=== PATIENT | female | born 1930 | race Caucasian/White ===

== ENCOUNTER 2016-10-31 02:21 | Inpatient (IN) | payer MEDICARE, BC ==
--- NOTE | 2016-10-31 02:25 | EDM.PDOC ---
ED HPI Trauma - General Chief Complaint: Lower Extremity Injury/Pain Stated Complaint: AMBULANCE Time Seen by Provider: 10/31/16 02:24 Source: Reports: Patient - History of Present Illness INITIAL COMMENTS - FREE TEXT/NARRATIVE: HISTORY AND PHYSICAL: History of present illness: [] Patient arrives via ambulance post fall in her home, is able to call the ambulance on her own she complains of left hip pain and she did hit her head quite hard no loss of consciousness No fever nausea vomiting chills sweats Review of systems: As per history of present illness and below otherwise all systems reviewed and negative. Past medical history: As per history of present illness and as reviewed below otherwise noncontributory. Surgical history: As per history of present illness and as reviewed below otherwise noncontributory. Social history: No reported history of drug or alcohol abuse. Family history: As per history of present illness and as reviewed below otherwise noncontributory. Physical exam: HEENT: Atraumatic, normocephalic, pupils reactive, negative for conjunctival pallor or scleral icterus, mucous membranes moist, throat clear, neck supple, nontender, trachea midline. Lungs: Clear to auscultation, breath sounds equal bilaterally, chest nontender. Heart: S1S2, regular, negative for clicks, rubs, or JVD. Abdomen: Soft, nondistended, nontender. Negative for masses or hepatosplenomegaly. Negative for costovertebral tenderness. Pelvis: Stable nontender. Genitourinary: Deferred. Rectal: Deferred. Extremities: Atraumatic, negative for cords or calf pain. Neurovascular unremarkable. Neuro: Awake, alert, oriented. Cranial nerves II through XII unremarkable. Cerebellum unremarkable. Motor and sensory unremarkable throughout. Exam nonfocal. Diagnostics: [] Head CT without Cervical spine with Pelvis with left hip Therapeutics: [] Morphine 1 mg IV Impression: [] Left hip pain Definitive disposition and diagnosis as appropriate pending reevaluation and review of above. Allergies/ADRs: Allergies No Known Allergies Allergy (Verified 06/25/16 11:28) Home Medications: Ambulatory Orders Calcium Carbonate [Calcium] 600 mg PO DAILY 03/05/14 [Confirmed 06/25/16] Cetirizine [ZyrTEC] 5 mg PO DAILY PRN 03/05/14 [Confirmed 06/27/16] Hydrochlorothiazide 25 mg PO DAILY 03/05/14 [Confirmed 06/27/16] Ramipril [Altace] 5 mg PO DAILY 03/05/14 [Confirmed 06/27/16] Omeprazole Magnesium [Prilosec Otc] 20 mg PO DAILY 03/14/14 [Confirmed 06/27/16] Potassium Gluconate [Potassium] 40 meq PO BID 06/25/16 [Confirmed 06/27/16] Aspirin 81 mg PO DAILY 06/27/16 [Confirmed 06/27/16] levETIRAcetam [Keppra] 500 mg PO BID #60 tablet 06/27/16 Past Medical History HEENT History: Reports: Other (see below) Other HEENT History: on glasses Cardiovascular History: Reports: Hypertension Respiratory History: Reports: None Gastrointestinal History: Reports: None Genitourinary History: Reports: None 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: Musculoskeletal History: Reports: None Neurological History: Reports: None Psychiatric History: Reports: None Endocrine/Metabolic History: Reports: None Hematologic History: Reports: None Oncologic (Cancer) History: Reports: Colon, Liver, Lung, Metastatic Dermatologic History: Reports: None - Infectious Disease History Infectious Disease History: Reports: None Social & Family History - Family History Family Medical History: Noncontributory - Tobacco Use Smoking Status *Q: Former Smoker Years of Tobacco use: 4 Used Tobacco, but Quit: Yes Month Tobacco Last Used: November Second Hand Smoke Exposure: No - Alcohol Use Days Per Week of Alcohol Use: 2 Number of Drinks Per Day: 1 Total Drinks Per Week: 2 - Recreational Drug Use Recreational Drug Use: No Review of Systems - Review of Systems Review Of Systems: ROS reveals no pertinent complaints other than HPI. Trauma Exam - Physical Exam Exam: See Below Course - Vital Signs Last Recorded V/S: Last Vital Signs Temp 36.8 C 10/31/16 05:27 Pulse 86 10/31/16 05:27 Resp 16 10/31/16 05:27 BP 135/59 L 10/31/16 05:27 Pulse Ox 96 10/31/16 05:27 - Orders/Labs/Meds Orders: Active Orders 24 hr Category Date Time Status EKG Documentation Completion [RC] STAT Care 10/31/16 04:25 Active Urinary Catheter Assessment [RC] ASDIRECTED Care 10/31/16 05:31 Active Urinary Catheter Insertion [Insert Urinary Catheter] [ Care 10/31/16 05:45 Ordered OM.PC] Q24H Cervical Spine wo Cont [CT] Stat Exams 10/31/16 02:29 Taken Chest 1V Frontal [CR] Stat Exams 10/31/16 04:25 Taken Head wo Cont [CT] Stat Exams 10/31/16 02:29 Taken Hip Min 1V w Pelvis Lt [CR] Stat Exams 10/31/16 02:28 Taken Sodium Chloride 0.9% [Normal Saline] 1,000 ml Med 10/31/16 04:30 Active IV STAT Medication Orders Sodium Chloride (Normal Saline) 1,000 mls @ 125 mls/hr IV STAT ARMANDO Last Admin: 10/31/16 04:52 Dose: 125 mls/hr Labs: Laboratory Tests 10/31/16 10/31/16 10/31/16 Range/Units 04:45 04:45 04:45 WBC 6.95 (4.0-11.0) K/uL RBC 3.49 L (4.30-5.90) M/uL Hgb 10.1 L (12.0-16.0) g/dL Hct 31.7 L (36.0-46.0) % MCV 90.8 (80.0-98.0) fL MCH 28.9 (27.0-32.0) pg MCHC 31.9 (31.0-37.0) g/dL RDW Std Deviation 51.0 (28.0-62.0) fl RDW Coeff of Lisa 15 (11.0-15.0) % Plt Count 250 (150-400) K/uL MPV 9.00 (7.40-12.00) fL Neut % (Auto) 81.2 H (48.0-80.0) % Lymph % (Auto) 9.6 L (16.0-40.0) % Christian % (Auto) 8.2 (0.0-15.0) % Eos % (Auto) 0.7 (0.0-7.0) % Baso % (Auto) 0.3 (0.0-1.5) % Neut # (Auto) 5.6 (1.4-5.7) K/uL Lymph # (Auto) 0.7 (0.6-2.4) K/uL Christian # (Auto) 0.6 (0.0-0.8) K/uL Eos # (Auto) 0.1 (0.0-0.7) K/uL Baso # (Auto) 0.0 (0.0-0.1) K/uL Nucleated RBC % 0.0 /100WBC Nucleated RBCs # 0 K/uL INR 1.00 (0.86-1.11) Sodium 139 (136-146) mmol/L Potassium 4.2 (3.5-5.1) mmol/L Chloride 108 (98-110) mmol/L Carbon Dioxide 20 L (21-31) mmol/L BUN 31 H (6.0-23.0) mg/dL Creatinine 1.0 (0.6-1.5) mg/dL Est Cr Clr Drug Dosing TNP Estimated GFR (MDRD) 52.6 ml/min Glucose 97 (60-110) mg/dL Calcium 10.4 (8.8-10.8) mg/dL Total Bilirubin 1.3 (0.1-1.5) mg/dL AST 50 H (5-40) IU/L ALT 34 (8-54) IU/L Alkaline Phosphatase 286 H (40-150) Troponin I (0.0-0.29) NG/ML Total Protein 7.4 (6.0-8.0) g/dL Albumin 2.9 L (3.4-4.8) g/dL Globulin 4.5 H (2.0-3.5) g/dL Albumin/Globulin Ratio 0.6 L (1.3-2.8) Urine Color Urine Appearance Urine pH (5.0-8.0) Ur Specific [place] (1.001-1.035) Urine Protein (NEGATIVE) mg/dL Urine Glucose (UA) (NEGATIVE) mg/dL Urine Ketones (NEGATIVE) mg/dL Urine Occult Blood (NEGATIVE) Urine Nitrite (NEGATIVE) Urine Bilirubin (NEGATIVE) Urine Urobilinogen (<2.0) EU/dL Ur Leukocyte Esterase (NEGATIVE) Urine RBC (0-2/HPF) Urine WBC (0-5/HPF) Urine Bacteria (NEGATIVE) 10/31/16 10/31/16 Range/Units 04:45 05:20 WBC (4.0-11.0) K/uL RBC (4.30-5.90) M/uL Hgb (12.0-16.0) g/dL Hct (36.0-46.0) % MCV (80.0-98.0) fL MCH (27.0-32.0) pg MCHC (31.0-37.0) g/dL RDW Std Deviation (28.0-62.0) fl RDW Coeff of Lisa (11.0-15.0) % Plt Count (150-400) K/uL MPV (7.40-12.00) fL Neut % (Auto) (48.0-80.0) % Lymph % (Auto) (16.0-40.0) % Christian % (Auto) (0.0-15.0) % Eos % (Auto) (0.0-7.0) % Baso % (Auto) (0.0-1.5) % Neut # (Auto) (1.4-5.7) K/uL Lymph # (Auto) (0.6-2.4) K/uL Christian # (Auto) (0.0-0.8) K/uL Eos # (Auto) (0.0-0.7) K/uL Baso # (Auto) (0.0-0.1) K/uL Nucleated RBC % /100WBC Nucleated RBCs # K/uL INR (0.86-1.11) Sodium (136-146) mmol/L Potassium (3.5-5.1) mmol/L Chloride (98-110) mmol/L Carbon Dioxide (21-31) mmol/L BUN (6.0-23.0) mg/dL Creatinine (0.6-1.5) mg/dL Est Cr Clr Drug Dosing Estimated GFR (MDRD) ml/min Glucose (60-110) mg/dL Calcium (8.8-10.8) mg/dL Total Bilirubin (0.1-1.5) mg/dL AST (5-40) IU/L ALT (8-54) IU/L Alkaline Phosphatase (40-150) Troponin I < 0.10 (0.0-0.29) NG/ML Total Protein (6.0-8.0) g/dL Albumin (3.4-4.8) g/dL Globulin (2.0-3.5) g/dL Albumin/Globulin Ratio (1.3-2.8) Urine Color YELLOW Urine Appearance CLEAR Urine pH 5.0 (5.0-8.0) Ur Specific [place] 1.010 (1.001-1.035) Urine Protein NEGATIVE (NEGATIVE) mg/dL Urine Glucose (UA) NEGATIVE (NEGATIVE) mg/dL Urine Ketones NEGATIVE (NEGATIVE) mg/dL Urine Occult Blood TRACE-INTACT (NEGATIVE) Urine Nitrite NEGATIVE (NEGATIVE) Urine Bilirubin NEGATIVE (NEGATIVE) Urine Urobilinogen 0.2 (<2.0) EU/dL Ur Leukocyte Esterase NEGATIVE (NEGATIVE) Urine RBC 0-2 (0-2/HPF) Urine WBC 2-3 (0-5/HPF) Urine Bacteria FEW (NEGATIVE) Meds: Medications Generic Name Dose Route Start Last Admin Trade Name Freq PRN Reason Stop Dose Admin Sodium Chloride 1,000 mls @ 125 mls/hr 10/31/16 04:30 10/31/16 04:52 Normal Saline IV 125 mls/hr STAT ARMANDO Administration Discontinued Medications Generic Name Dose Route Start Last Admin Trade Name Freq PRN Reason Stop Dose Admin Morphine Sulfate 1 mg 10/31/16 04:16 10/31/16 04:51 Morphine IV 10/31/16 04:17 1 mg ONETIME ONE Administration Departure - Departure Time of Disposition: 05:38 Disposition: Admitted As Inpatient 66 Condition: poor Clinical Impression: Hip fracture, left Forms: ED Department Discharge - My Orders Last 24 Hours: My Active Orders 10/31/16 02:28 Hip Min 1V w Pelvis Lt [CR] Stat 10/31/16 02:29 Cervical Spine wo Cont [CT] Stat Head wo Cont [CT] Stat 10/31/16 04:25 EKG Documentation Completion [RC] STAT Chest 1V Frontal [CR] Stat 10/31/16 04:30 Sodium Chloride 0.9% [Normal Saline] 1,000 ml IV STAT 10/31/16 05:31 Urinary Catheter Assessment [RC] ASDIRECTED 10/31/16 05:45 Urinary Catheter Insertion [Insert Urinary Catheter] [OM.PC] Q24H - Assessment/Plan Last 24 Hours: My Active Orders 10/31/16 02:28 Hip Min 1V w Pelvis Lt [CR] Stat 10/31/16 02:29 Cervical Spine wo Cont [CT] Stat Head wo Cont [CT] Stat 10/31/16 04:25 EKG Documentation Completion [RC] STAT Chest 1V Frontal [CR] Stat 10/31/16 04:30 Sodium Chloride 0.9% [Normal Saline] 1,000 ml IV STAT 10/31/16 05:31 Urinary Catheter Assessment [RC] ASDIRECTED 10/31/16 05:45 Urinary Catheter Insertion [Insert Urinary Catheter] [OM.PC] Q24H
[2016-10-31] MEDS ORDERED: Morphine 10 MG/ML Syringe IV ONE (04:16)
[2016-10-31] MEDS ORDERED: Sodium Chloride 0.9% 1,000 ML IV SCH (04:30)
[2016-10-31 05:14] LABS: CHLORIDE,CL 108 mmol/L (98-110); SODIUM,NA 139 mmol/L (136-146)
--- NOTE | 2016-10-31 08:11 | PCM.HP ---
H&P History of Present Illness - General Date of Service: 10/31/16 Admit Problem/Dx: Admission Diagnosis/Problem Admission Diagnosis/Problem Fracture of bone Source of Information: Patient History Limitations: Reports: No limitations - History of Present Illness Initial Comments - Free Text/Narative: 86 y o woman in hospicefor 3 yr hx colon cancer had non-syncopal fall at home fracturing her Left femoral neck Onset of Symptoms: Reports: today Duration of Symptoms: Reports: Hour(s): Location: Reports: lower extremity, left Left Hip Pain Score (Numeric/FACES): 5 - Related Data Allergies/Adverse Reactions: Allergies Allergy/AdvReac Type Severity Reaction Status Date / Time No Known Allergies Allergy Verified 06/25/16 11:28 Home Medications: Home Meds Calcium Carbonate [Calcium] 600 mg PO DAILY 03/05/14 [History] Cetirizine [ZyrTEC] 5 mg PO DAILY PRN 03/05/14 [History] Hydrochlorothiazide 25 mg PO DAILY 03/05/14 [History] Ramipril [Altace] 5 mg PO DAILY 03/05/14 [History] Omeprazole Magnesium [Prilosec Otc] 20 mg PO DAILY 03/14/14 [History] Potassium Gluconate [Potassium] 40 meq PO BID 06/25/16 [History] Aspirin 81 mg PO DAILY 06/27/16 [History] levETIRAcetam [Keppra] 500 mg PO BID #60 tablet 06/27/16 [Rx] Past Medical History HEENT History: Reports: Other (see below) Other HEENT History: on glasses Cardiovascular History: Reports: Hypertension Respiratory History: Reports: None Gastrointestinal History: Reports: None Genitourinary History: Reports: None 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: Musculoskeletal History: Reports: None Neurological History: Reports: None Psychiatric History: Reports: None Endocrine/Metabolic History: Reports: None Hematologic History: Reports: None Oncologic (Cancer) History: Reports: Colon, Liver, Lung, Metastatic Dermatologic History: Reports: None - Infectious Disease History Infectious Disease History: Reports: None - Past Surgical History GI Surgical History: Reports: Other (see below) Other GI Surgeries/Procedures: bowel obstruction and tumor Oncologic Surgical History: Reports: Lumpectomy (R side) Social & Family History - Family History Family Medical History: Noncontributory Oncologic: Reports: Liver Other Oncologic Family History: brother [email or web address] - Tobacco Use Smoking Status *Q: Never Smoker Years of Tobacco use: 4 Used Tobacco, but Quit: Yes Month Tobacco Last Used: November Second Hand Smoke Exposure: No - Caffeine Use Caffeine Use: Reports: Coffee - Alcohol Use Alcohol Use History: Yes Days Per Week of Alcohol Use: 2 Number of Drinks Per Day: 1 Total Drinks Per Week: 2 Alcohol Use Frequency: Rarely - Recreational Drug Use Recreational Drug Use: No - Living Situation & Occupation Living situation: Reports: 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 Review of Systems - Review of Systems: Review Of Systems: See Below General: Reports: no symptoms HEENT: Reports: no symptoms Pulmonary: Reports: No Symptoms Cardiovascular: Reports: no symptoms Gastrointestinal: Reports: Stool incontinence (occasional, wears a garment) Genitourinary: Reports: no symptoms Musculoskeletal: Reports: no symptoms Skin: Reports: no symptoms Psychiatric: Reports: no symptoms Neurological: Reports: No Symptoms Hematologic/Lymphatic: Reports: no symptoms Immunologic: Reports: no symptoms Exam - Exam Exam: See Below - Vital Signs Vital Signs: Last Vital Signs Temp 36.7 C 10/31/16 06:00 Pulse 83 10/31/16 06:15 Resp 20 10/31/16 06:15 BP 137/90 10/31/16 06:15 Pulse Ox 95 10/31/16 06:15 Weight: 48.5 kg - Exam General: alert, oriented, mild distress Neck: supple Lungs: Clear to auscultation Cardiovascular: regular rate Abdomen: hyperactive bowel sounds, hypoactive bowel sounds (Female) Exam: Deferred Rectal (Female) Exam: Deferred Extremities: other (Left leg shorter) Skin: warm, intact, other (R mastectomy) - Patient Data Result Diagrams: 10/31/16 04:45 10/31/16 04:45 *Q Meaningful Use (ADM) - VTE *Q VTE Criteria *Q: - Stroke *Q Stroke Criteria *Q: - AMI *Q AMI Criteria *Q: Problem List Initiated/Reviewed/Updated: Yes Orders Last 24hrs: Medication Orders Sodium Chloride (Normal Saline) 1,000 mls @ 125 mls/hr IV STAT ARMANDO Last Admin: 10/31/16 04:52 Dose: 125 mls/hr Assessment/Plan Comment:: fracture Left femoral neck colon no increased risk for surgerycancer with mets to livet excellent performance status with
[2016-10-31] MEDS: HYDROmorphone 2 MG/ML Syringe IVPUSH PRN ×2 (09:50→22:32)
[2016-10-31] MEDS: Sodium Chloride 0.9% with KCl 1,000 ML IV SCH ×2 (09:50)
[2016-10-31] MEDS ORDERED: Cetirizine 10 MG Tab PO PRN (10:32)
[2016-10-31] MEDS ORDERED: levETIRAcetam 500 MG Tab PO SCH (10:45)
[2016-10-31] MEDS ORDERED: POTASSIUM GLUCONATE PO SCH (10:45)
--- NOTE | 2016-10-31 11:02 | PCM.CONS ---
H&P History of Present Illness - General Date of Service: 10/31/16 Admit Problem/Dx: Admission Diagnosis/Problem Admission Diagnosis/Problem Fracture of left femoral neck Source of Information: Patient, Family History Limitations: Reports: No limitations - History of Present Illness Initial Comments - Free Text/Narative: 86 y/o female who fell early am today, landing on left hip. Denies LOC or other injuries. Evaluated in ER. Found to have displaced fracture of the left femoral neck. No previous h/o left hip pain. Patient has h/o metastatic colon cancer, currently on hospice treatment for this as she does not wish to pursue further treatment. She lives alone and is an independent ambulator. Currently only c/o left hip pain. Denies distal paralysis, paresthesias. Left Hip Pain Score (Numeric/FACES): 5 - Related Data Allergies/Adverse Reactions: Allergies Allergy/AdvReac Type Severity Reaction Status Date / Time No Known Allergies Allergy Verified 06/25/16 11:28 Home Medications: Home Meds Calcium Carbonate [Calcium] 600 mg PO DAILY 03/05/14 [History] Cetirizine [ZyrTEC] 5 mg PO DAILY PRN 03/05/14 [History] Hydrochlorothiazide 25 mg PO DAILY 03/05/14 [History] Ramipril [Altace] 5 mg PO DAILY 03/05/14 [History] Omeprazole Magnesium [Prilosec Otc] 20 mg PO DAILY 03/14/14 [History] Potassium Gluconate [Potassium] 40 meq PO BID 06/25/16 [History] Aspirin 81 mg PO DAILY 06/27/16 [History] levETIRAcetam [Keppra] 500 mg PO BID #60 tablet 06/27/16 [Rx] Past Medical History HEENT History: Reports: Other (see below) Other HEENT History: on glasses Cardiovascular History: Reports: Hypertension. 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: Musculoskeletal History: Reports: None Neurological History: Reports: None Psychiatric History: Reports: None Endocrine/Metabolic History: Reports: None Hematologic History: Reports: None Oncologic (Cancer) History: Reports: Colon, Liver, Lung, Metastatic Dermatologic History: Reports: None - Infectious Disease History Infectious Disease History: Reports: None - Past Surgical History GI Surgical History: Reports: Other (see below) Other GI Surgeries/Procedures: bowel obstruction and tumor Oncologic Surgical History: Reports: Lumpectomy (R side) Social & Family History - Family History Family Medical History: Noncontributory Oncologic: Reports: Liver Other Oncologic Family History: brother [id number] - Tobacco Use Smoking Status *Q: Never Smoker Years of Tobacco use: 4 Used Tobacco, but Quit: Yes Month Tobacco Last Used: November Second Hand Smoke Exposure: No - Caffeine Use Caffeine Use: Reports: Coffee - Alcohol Use Days Per Week of Alcohol Use: 2 Number of Drinks Per Day: 1 Total Drinks Per Week: 2 - Recreational Drug Use Recreational Drug Use: No - Living Situation & Occupation Living situation: Reports: , alone 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 Review of Systems - Review of Systems: Review Of Systems: See Below General: Reports: no symptoms HEENT: Reports: no symptoms Pulmonary: Reports: No Symptoms Cardiovascular: Reports: no symptoms Gastrointestinal: Reports: No symptoms Genitourinary: Reports: no symptoms Musculoskeletal: Reports: joint pain Skin: Reports: no symptoms Psychiatric: Reports: no symptoms Neurological: Reports: No Symptoms Hematologic/Lymphatic: Reports: no symptoms Immunologic: Reports: no symptoms Exam - Exam Exam: See Below - Vital Signs Vital Signs: Last Vital Signs Temp 98.1 F 10/31/16 06:00 Pulse 83 10/31/16 06:15 Resp 20 10/31/16 06:15 BP 137/90 10/31/16 06:15 Pulse Ox 95 10/31/16 06:15 Weight: 48.5 kg - Exam General: alert, oriented, 4 HEENT: Conjunctiva clear, Hearing intact, Nares patent Neck: supple, trachea midline, 2 Lungs: Normal respiratory effort Cardiovascular: regular rate Abdomen: soft (Female) Exam: Deferred Rectal (Female) Exam: Deferred Back Exam: No: paraspinal tenderness, vertebral tenderness Skin: warm, dry, intact Neuro Extensive - Mental Status: alert, oriented x3, normal mood/affect, normal cognition Psychiatric: alert, normal affect, normal mood Physical Exam Comments:: Exam of the LLE shows it to be shortened, externally rotated. TTP over lateral left hip. Pain with gently log rolling of left hip. No other areas of tenderness. AT/EHL/gastroc 5/5. Sensation intact to gross touch but patchy decreased sensation secondary to peripheral neuropathy. DP 2+. - Patient Data Result Diagrams: 10/31/16 04:45 10/31/16 04:45 Imaging Impressions last 24 hrs: XR left hip shows displaced fracture of the left femoral neck. No pathological lesion noted. Consult PN Assessment/Plan Procedures: Procedures ASSAY OF AMYLASE (03/05/14) ASSAY OF LIPASE (03/05/14) ASSAY OF MAGNESIUM (06/25/16) ASSAY OF TROPONIN QUANT (06/25/16) CHEST X-RAY 1 VIEW FRONTAL (06/25/16) COMPLETE CBC W/AUTO DIFF WBC (07/10/16) COMPREHEN METABOLIC PANEL (06/25/16) CRITICAL CARE FIRST HOUR (03/05/14) CT ABD & PELV W/CONTRAST (03/14/14) CT HEAD/BRAIN W/O DYE (06/25/16) DRUG SCRN LENKA LEVETIRACETAM (07/10/16) ECHO EXAM OF ABDOMEN (03/05/14) ELECTROCARDIOGRAM TRACING (06/25/16) EMERGENCY DEPT VISIT (06/25/16) EMERGENCY DEPT VISIT (03/14/14) EMERGENCY DEPT VISIT (03/05/14) HYDRATE IV INFUSION ADD-ON (03/14/14) IRRIG DRUG DELIVERY DEVICE (12/02/15) LIPID PANEL (04/07/15) METABOLIC PANEL TOTAL CA (07/10/16) MRI BRAIN STEM W/O & W/DYE (06/25/16) OFFICE/OUTPATIENT VISIT EST (07/10/16) OFFICE/OUTPATIENT VISIT EST (07/23/14) OFFICE/OUTPATIENT VISIT EST (03/25/14) PCV13 VACCINE IM (04/30/15) ROUTINE VENIPUNCTURE (07/10/16) THER/PROPH/DIAG IV INF INIT (06/25/16) TX/PRO/DX INJ NEW DRUG ADDON (06/25/16) TX/PRO/DX INJ SAME DRUG BACKUP ADMINISTRATIVE COORDINATOR (06/25/16) URINALYSIS AUTO W/SCOPE (03/05/14) (1) Left displaced femoral neck fracture SNOMED Code(s): 0290600, 921978505 Code(s): S72.002A - FRACTURE OF UNSP PART OF NECK OF LEFT FEMUR, INIT Current Visit: Yes Problem List Initiated/Reviewed/Updated: Yes Plan: I had a long discussion with the patient and her family regarding treatment options. We discussed both conservative and surgical interventions. The patient continues to be quite active and is an independent ambulator. At this time I am recommending that she undergo a left hip hemiarthroplasty. The procedure as well as postoperative course and restrictions was also discussed. Risks of the procedure were discussed which include, but are not limited to, infection, neurovascular injury, stiffness, continued pain, need for future surgery, dislocation, , and anesthetic complications. Patient seems to understand these risks and would like to proceed with surgery. Will plan on scheduling it for tomorrow. She will be evaluated by the hospitalist prior to surgery.
[2016-10-31] MEDS: Omeprazole 20 MG Cap.CR PO SCH (11:43)
[2016-10-31] MEDS: Hydrochlorothiazide 25 MG Tab PO SCH (11:43)
--- NOTE | 2016-10-31 15:38 | CT ---
EXAM DATE: 10/31/16 PATIENT'S AGE: 86 Patient: RUFINO MUKHERJEE Facility: [place], [place] Site . Site : 1930 Study: CT Head [id number]/2/2017 3:16:16 AM Ordering Physician: Dc Bass Final Report: INDICATION: Fall TECHNIQUE: CT head without contrast. COMPARISON: None available FINDINGS: The ventricles and sulci demonstrate normal configuration and size for the patient`s age. There is no mass effect or midline shift. Few white matter hypodensities are suggestive of mild chronic small vessel ischemic changes. There is no loss of marcelo-white differentiation. There is no evidence of an acute intracranial hemorrhage. No acute calvarial fracture is seen. There is near opacification of the right sphenoid sinus and slight ethmoid sinus mucosal thickening. There is apparent opacification of a single right mastoid air cell. The visualized orbits are within normal limits. IMPRESSION: No evidence of an acute intracranial hemorrhage, mass effect or loss of marcelo- white differentiation. Right sphenoid sinus disease. Dictated by Giovanni Mcginnis MD @ 10/31/2016 3:59:59 AM Dictated by: Giovanni Mcginnis MD @ 10/31/2016 04:00:31 (Electronic Signature) Report Signed by Proxy. KEYUR
--- NOTE | 2016-10-31 15:40 | CR ---
EXAM DATE: 10/31/16 PATIENT'S AGE: 86 Patient: RUFINO MUKHERJEE Facility: [place], [place] Site . Site : 1930 Study: XRay Extremity Left Hip [id number]/31/2016 3:16:39 AM Ordering Physician: Dc Bass Final Report: Indication: Fall Technique: A frontal view of the pelvis and two views of the left hip Comparison: None available Findings: Bones: A displaced left femoral neck fracture. No dislocation. Joint spaces: Unremarkable. Soft tissues: Unremarkable. Impression: A left femoral neck fracture. Dictated by Giovanni Mcginnis MD @ 10/31/2016 4:09:10 AM Dictated by: Giovanni Mcginnis MD @ 10/31/2016 04:09:16 (Electronic Signature) Report Signed by Proxy. [email or web address]
--- NOTE | 2016-10-31 15:42 | CT ---
EXAM DATE: 10/31/16 PATIENT'S AGE: 86 Patient: RUFINO MUKHERJEE Facility: [place], [place] Site . Site : 1930 Study: CT Spine Cervical [id number]/2/2017 3:16:54 AM Ordering Physician: Dc Bass Final Report: INDICATION: Fall TECHNIQUE: CT cervical spine without contrast. COMPARISON: None available FINDINGS: There is mild anterolisthesis of C4 on C5, slight anterolisthesis of C5 on C6 and C7 on T1, and slight retrolisthesis of C6 on C7, probably degenerative. The craniocervical and atlantoaxial alignments are near anatomical. There is no evidence of an acute cervical spine fracture. There is no significant precervical soft tissue swelling. There are multilevel degenerative changes. Thyroid low-density lesions are seen. There is a partially imaged tunneled catheter in the lower right neck. IMPRESSION: No evidence of an acute cervical spine fracture. Alignment abnormalities, likely degenerative. Thyroid low-density lesions. Correlate with nonemergent sonography. Dictated by Giovanni Mcginnis MD @ 10/31/2016 4:06:48 AM Dictated by: Giovanni Mcginnis MD @ 10/31/2016 04:07:07 (Electronic Signature) Report Signed by Proxy. KEYUR
--- NOTE | 2016-10-31 15:43 | CR ---
EXAM DATE: 10/31/16 PATIENT'S AGE: 86 Patient: RUFINO MUKHERJEE Facility: [place], [place] Site . Site : 1930 Study: XRay Chest [id number] 5:05:06 AM Ordering Physician: Dc Bass Final Report: INDICATION: pain HISTORY: Chest pain. COMPARISON: 06/25/2016. TECHNIQUE: Chest one-view portable. FINDINGS: Right IJ Port-A-Cath, with its tip in the SVC. Heart size and pulmonary vasculature are within normal limits. Mild vascular crowding at the right pulmonary hilum. No acute airspace disease. There are linear interfaces present about the right hemithorax, with vascular markings on both sides. Skin folds are favored. Expiratory or decubitus radiographs may be obtained to evaluate for a pneumothorax, which is not favored. The central airway is normal. Osseous structures are intact. IMPRESSION: 1. No acute airspace disease. 2. Linear interface about the right hemithorax. A skin fold is favored. See above discussion. Dictated by Trent Nevarez MD @ 10/31/2016 6:06:32 AM Dictated by: Trent Nevarez MD @ 10/31/2016 06:06:45 (Electronic Signature) Report Signed by Proxy. [facility] MED[facility] CENTERAlberto
[2016-10-31] MEDS ORDERED: Enoxaparin 40 MG/0.4 ML Syringe SUBCUT SCH (21:00)
[2016-11-01 05:54] LABS: CHLORIDE,CL 107 mmol/L (98-110); SODIUM,NA 136 mmol/L (136-146)
[2016-11-01] MEDS: Omeprazole 20 MG Cap.CR PO SCH (06:59)
[2016-11-01] MEDS ORDERED: Omeprazole 20 MG Cap.CR PO SCH (07:30)
--- NOTE | 2016-11-01 07:59 | PCM.SN ---
- Free Text/Narrative Note: pt resting comfortably in bed pain controlled currently has been NPO since midnight Dr Avila marked surgical site yesterday procedure and post-op expectations discussed with the patient and her family they are anticipating short stay in Rehab post-op DVT prophylaxis to be determined post-operatively all questions and concerns were answered/addressed
[2016-11-01] MEDS: Sodium Chloride 0.9% with KCl 1,000 ML IV SCH ×2 (09:07)
[2016-11-01] MEDS: Hydrochlorothiazide 25 MG Tab PO SCH (09:08)
[2016-11-01] MEDS ORDERED: Succinylcholine/Normal Saline 200 MG/10 ML Syringe ONE (10:13)
[2016-11-01] MEDS ORDERED: Etomidate 2 MG/ML 20 ML SDV IVPUSH ONE (10:13)
[2016-11-01] MEDS ORDERED: fentaNYL 250 MCG/5 ML SDV ONE ×2 (10:13→11:59)
[2016-11-01] MEDS ORDERED: Midazolam 1 MG/ML 2 ML SDV ONE (10:13)
[2016-11-01] MEDS ORDERED: Rocuronium 10 MG/ML 10 ML Syringe ONE (10:13)
[2016-11-01] MEDS ORDERED: Ondansetron 4 MG/2 ML SDV ONE (10:13)
[2016-11-01] MEDS ORDERED: Phenylephrine 1% 10 MG/ML SDV ONE (10:25)
--- NOTE | 2016-11-01 10:44 | PCM.PREANE ---
Preanesthetic Assessment - Procedure Proposed Procedure: Left total hip replacement - Anesthesia/Transfusion/Family Hx Anesthesia History: Prior Anesthesia Without Reaction Family History of Anesthesia Reaction: No Transfusion History: No Prior Transfusion(s) Intubation History: Unknown Additional History: Patient is 3 yr s/p colon CA and with mets. She has completed all the chemotherapy. 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 she understands the anesthetic to require drugs and ventilation assist/control for the procedure. Therefore she is off the DNR status for the surgery with in hospital status for resuscitation to be stated again post procedure. Her doughter was present for interview and exam. - Review of Systems General: Weakness Pulmonary: No Symptoms Cardiovascular: No Symptoms Gastrointestinal: Other (on omeprazole) Neurological: Pre-Existing Deficit, Difficulty Walking (peripheral neuropathy) Other: Reports: None - Physical Assessment O2 Sat by Pulse Oximetry: 94 Respiratory Rate: 20 Blood Pressure: 127/55 Vital Signs: Last Vital Signs Temp 98.4 F 11/01/16 07:21 Pulse 78 11/01/16 07:21 Resp 20 11/01/16 07:21 BP 151/77 H 11/01/16 07:21 Pulse Ox 94 L 11/01/16 07:21 Height: 5 ft 6.14 in Weight: 106 lb 14.787 oz ASA Class: 3 Mental Status: Alert & Oriented x3 Airway Class: Mallampati = 2 Dentition: Reports: Missing Tooth/Teeth (frontals intact; partial out of mouth) Thyro-Mental Finger Breadths: 3 Mouth Opening Finger Breadths: 2 (voluntary limitation) ROM/Head Extension: Full Lungs: Clear to auscultation, Normal respiratory effort Cardiovascular: Regular Rate, Regular Rhythm, No Murmurs Other: very thin, but not cachectic - Lab Values: Laboratory Last Values WBC 6.95 K/uL (4.0-11.0) 10/31/16 04:45 RBC 3.49 M/uL (4.30-5.90) L 10/31/16 04:45 Hgb 9.8 g/dL (12.0-16.0) L 11/01/16 05:03 Hct 30.3 % (36.0-46.0) L 11/01/16 05:03 MCV 90.8 fL (80.0-98.0) 10/31/16 04:45 MCH 28.9 pg (27.0-32.0) 10/31/16 04:45 MCHC 31.9 g/dL (31.0-37.0) 10/31/16 04:45 RDW Std Deviation 51.0 fl (28.0-62.0) 10/31/16 04:45 RDW Coeff of Lisa 15 % (11.0-15.0) 10/31/16 04:45 Plt Count 250 K/uL (150-400) 10/31/16 04:45 MPV 9.00 fL (7.40-12.00) 10/31/16 04:45 Neut % (Auto) 81.2 % (48.0-80.0) H 10/31/16 04:45 Lymph % (Auto) 9.6 % (16.0-40.0) L 10/31/16 04:45 Barber % (Auto) 8.2 % (0.0-15.0) 10/31/16 04:45 Eos % (Auto) 0.7 % (0.0-7.0) 10/31/16 04:45 Baso % (Auto) 0.3 % (0.0-1.5) 10/31/16 04:45 Neut # (Auto) 5.6 K/uL (1.4-5.7) 10/31/16 04:45 Lymph # (Auto) 0.7 K/uL (0.6-2.4) 10/31/16 04:45 Barber # (Auto) 0.6 K/uL (0.0-0.8) 10/31/16 04:45 Eos # (Auto) 0.1 K/uL (0.0-0.7) 10/31/16 04:45 Baso # (Auto) 0.0 K/uL (0.0-0.1) 10/31/16 04:45 Nucleated RBC % 0.0 /100WBC 10/31/16 04:45 Nucleated RBCs # 0 K/uL 10/31/16 04:45 INR 1.00 (0.86-1.11) 10/31/16 04:45 Sodium 136 mmol/L (136-146) 11/01/16 05:03 Potassium 3.7 mmol/L (3.5-5.1) 11/01/16 05:03 Chloride 107 mmol/L (98-110) 11/01/16 05:03 Carbon Dioxide 19 mmol/L (21-31) L 11/01/16 05:03 BUN 24 mg/dL (6.0-23.0) H 11/01/16 05:03 Creatinine 0.8 mg/dL (0.6-1.5) 11/01/16 05:03 Est Cr Clr Drug Dosing TNP 11/01/16 05:03 Estimated GFR (MDRD) > 60.0 ml/min 11/01/16 05:03 Glucose 100 mg/dL (60-110) 11/01/16 05:03 Calcium 9.6 mg/dL (8.8-10.8) 11/01/16 05:03 Total Bilirubin 1.3 mg/dL (0.1-1.5) 10/31/16 04:45 AST 50 IU/L (5-40) H 10/31/16 04:45 ALT 34 IU/L (8-54) 10/31/16 04:45 Alkaline Phosphatase 286 (40-150) H 10/31/16 04:45 Troponin I < 0.10 NG/ML (0.0-0.29) 10/31/16 04:45 Total Protein 7.4 g/dL (6.0-8.0) 10/31/16 04:45 Albumin 2.9 g/dL (3.4-4.8) L 10/31/16 04:45 Globulin 4.5 g/dL (2.0-3.5) H 10/31/16 04:45 Albumin/Globulin Ratio 0.6 (1.3-2.8) L 10/31/16 04:45 Urine Color YELLOW 10/31/16 05:20 Urine Appearance CLEAR 10/31/16 05:20 Urine pH 5.0 (5.0-8.0) 10/31/16 05:20 Ur Specific [place] 1.010 (1.001-1.035) 10/31/16 05:20 Urine Protein NEGATIVE mg/dL (NEGATIVE) 10/31/16 05:20 Urine Glucose (UA) NEGATIVE mg/dL (NEGATIVE) 10/31/16 05:20 Urine Ketones NEGATIVE mg/dL (NEGATIVE) 10/31/16 05:20 Urine Occult Blood TRACE-INTACT (NEGATIVE) 10/31/16 05:20 Urine Nitrite NEGATIVE (NEGATIVE) 10/31/16 05:20 Urine Bilirubin NEGATIVE (NEGATIVE) 10/31/16 05:20 Urine Urobilinogen 0.2 EU/dL (<2.0) 10/31/16 05:20 Ur Leukocyte Esterase NEGATIVE (NEGATIVE) 10/31/16 05:20 Urine RBC 0-2 (0-2/HPF) 10/31/16 05:20 Urine WBC 2-3 (0-5/HPF) 10/31/16 05:20 Urine Bacteria FEW (NEGATIVE) 10/31/16 05:20 Blood Type A POSITIVE 10/31/16 11:37 Antibody Screen NEGATIVE 10/31/16 11:37 Crossmatch See Detail 10/31/16 11:37 - Allergies Allergies/Adverse Reactions: Allergies Allergy/AdvReac Type Severity Reaction Status Date / Time No Known Allergies Allergy Verified 06/25/16 11:28 - Blood Blood Available: Yes Product(s) Available: PRBC (2 units) - Anesthesia Plan Free Text/Narrative:: May require blood to tolerate surgery: H/H = 04/30. Pre-Op Medication Ordered: None - Acknowledgements Anesthesia Type Planned: General Anesthesia (OET) Pt an Appropriate Candidate for the Planned Anesthesia: Yes Alternatives and Risks of Anesthesia Discussed w Pt/Guardian: Yes Pt/Guardian Understands and Agrees with Anesthesia Plan: Yes PreAnesthesia Questionnaire HEENT History: Reports: Other (see below) Other HEENT History: on glasses Cardiovascular History: Reports: Hypertension. Denies: [place] Respiratory History: Reports: None Gastrointestinal History: Reports: None Genitourinary History: Reports: None WEIGHT TESTER History: Reports: Musculoskeletal History: Reports: None Neurological History: Reports: None Psychiatric History: Reports: None Endocrine/Metabolic History: Reports: None Hematologic History: Reports: None Oncologic (Cancer) History: Reports: Colon, Liver, Lung, Metastatic Dermatologic History: Reports: None - Infectious Disease History Infectious Disease History: Reports: None - Past Surgical History GI Surgical History: Reports: Other (see below) Other GI Surgeries/Procedures: bowel obstruction and tumor Oncologic Surgical History: Reports: Lumpectomy (R side) - SUBSTANCE USE Smoking Status *Q: Never Smoker Second Hand Smoke Exposure: No Days Per Week of Alcohol Use: 2 Number of Drinks Per Day: 1 Total Drinks Per Week: 2 Recreational Drug Use History: No - HOME MEDS Home Medications: Home Meds Calcium Carbonate [Calcium] 600 mg PO DAILY 03/05/14 [History] Cetirizine [ZyrTEC] 5 mg PO DAILY PRN 03/05/14 [History] Hydrochlorothiazide 25 mg PO DAILY 03/05/14 [History] Ramipril [Altace] 5 mg PO DAILY 03/05/14 [History] Omeprazole Magnesium [Prilosec Otc] 20 mg PO DAILY 03/14/14 [History] Aspirin 81 mg PO DAILY 06/27/16 [History] levETIRAcetam [Keppra] 500 mg PO BID #60 tablet 06/27/16 [Rx] Potassium Chloride [Klor-Con M10] 40 meq PO BID 10/31/16 [History] - CURRENT (IN HOUSE) MEDS Current Meds: Current Medications Cetirizine HCl (Zyrtec) 5 mg PO DAILY PRN PRN Reason: Allergies Hydrochlorothiazide (Hydrochlorothiazide) 25 mg PO DAILY [facility] Last Admin: 11/01/16 09:08 Dose: Not Given Hydromorphone HCl (Dilaudid) 0.25 mg IVPUSH Q2H PRN PRN Reason: Pain (severe 7-10) Last Admin: 10/31/16 22:32 Dose: 0.25 mg Potassium Chloride/Sodium Chloride (Normal Saline With 40 Meq Kcl) 1,000 mls @ 50 mls/hr IV STAT [facility] Last Admin: 11/01/16 09:07 Dose: 50 mls/hr Cefazolin Sodium/Dextrose 1 gm (/ Premix) 50 mls @ 100 mls/hr IV ONETIME ONE Stop: 11/01/16 11:42 Omeprazole (Omeprazole) 20 mg PO ACBREAKFAST [facility] Last Admin: 11/01/16 06:59 Dose: Not Given Ramipril (Altace) 5 mg PO DAILY [facility] Last Admin: 11/01/16 09:08 Dose: Not Given Discontinued Medications Enoxaparin Sodium (Lovenox) 40 mg SUBCUT Q12HR [facility] Etomidate (Amidate) Confirm Administered Dose 40 mg IVPUSH .STK-MED ONE Stop: 11/01/16 10:14 Fentanyl (Sublimaze) Confirm Administered Dose 250 mcg .ROUTE .STK-MED ONE Stop: 11/01/16 10:14 Sodium Chloride (Normal Saline) 1,000 mls @ 125 mls/hr IV STAT [facility] Last Admin: 10/31/16 04:52 Dose: 125 mls/hr Levetiracetam (Keppra) 500 mg PO BID [facility] Last Admin: 10/31/16 11:00 Dose: Not Given Lidocaine HCl (Xylocaine-Mpf 1%) Confirm Administered Dose 5 ml .ROUTE .STK-MED ONE Stop: 11/01/16 10:14 Midazolam HCl (Versed 1 Mg/Ml) Confirm Administered Dose 2 mg .ROUTE .STK-MED ONE Stop: 11/01/16 10:14 Morphine Sulfate (Morphine) 1 mg IV ONETIME ONE Stop: 10/31/16 04:17 Last Admin: 10/31/16 04:51 Dose: 1 mg Non-Formulary Medication (Potassium Gluconate [Potassium]) 40 meq PO BID [facility] Last Admin: 10/31/16 16:07 Dose: Not Given Omeprazole (Omeprazole) 20 mg PO ACBREAKFAST [facility] Ondansetron HCl (Zofran) Confirm Administered Dose 4 mg .ROUTE .STK-MED ONE Stop: 11/01/16 10:14 Phenylephrine HCl (Jeronimo-Synephrine) Confirm Administered Dose 10 mg .ROUTE .STK- MED ONE Stop: 11/01/16 10:26 Ramipril (Altace) 5 mg PO DAILY [facility] Rocuronium [place] (Zemuron) Confirm Administered Dose 100 mg .ROUTE .STK-MED ONE Stop: 11/01/16 10:14 Succinylcholine Chloride (Succinylcholine In Ns Pf) Confirm Administered Dose 200 mg .ROUTE .STK-MED ONE Stop: 11/01/16 10:14
[2016-11-01] MEDS ORDERED: ceFAZolin 1 GM in Premix Bag 1 BAG IV ONE (11:13)
[2016-11-01] MEDS ORDERED: ceFAZolin 1 GM Vial ONE (11:24)
[2016-11-01] MEDS ORDERED: Sodium Chloride 0.9% 20 ML ONE (11:24)
--- NOTE | 2016-11-01 12:59 | PCM.OPNOTE ---
- General Post-Op/Procedure Note Date of Surgery/Procedure: 11/01/16 Operative Procedure(s): L hip hemiarthroplasty Post-Op Diagnosis: L femoral neck fracture Anesthesia Technique: General ET tube Primary Surgeon: Jessica Avila Quarry Supervisor Dimension Stone: Nicole Ledezma in mLs: 500 Condition: Fair Free Text/Narrative:: #[id number] Intake & Output 10/31/16 11/01/16 11/01/16 22:59 06:59 14:59 Intake Total 7602 032 Output Total 1022 089 Balance 1034 -556
--- NOTE | 2016-11-01 13:48 | PCM.POSTAN ---
POST ANESTHESIA ASSESSMENT - MENTAL STATUS Mental Status: alert, oriented Free Text/Narrative:: required one unit of blood in the OR...loss estimated at 500ml. Maintained mean pressure with some vasopressor assist, then blood. - VITAL SIGNS Pulse Rate: 69 SaO2: 99 Resp Rate: 14 Blood Pressure: 146/81 - RESPIRATORY Respiratory Status: respiratory rate WNL, airway patent, O2 saturation stable, supplemental oxygen - CARDIOVASCULAR CV Status: pulse rate WNL, blood pressure stable - GASTROINTESTINAL GI Status: no symptoms - PAIN Pain Score: 0 (answered without reservation) - POST OP HYDRATION Hydration Status: adequate & stable - OBSERVATIONS Free Text/Narrative:: Return to [facility] floor in good condition. Expect monitor of urine output and vitals will dictate need for 2nd unit of blood.
--- NOTE | 2016-11-01 17:03 | CR ---
EXAMINATION: Left hip HISTORY: Arthroplasty COMPARISON: 10/31/2016 TECHNIQUE: 2. Postoperative and a single AP intraoperative film provided. FINDINGS/IMPRESSION: Intraoperative film demonstrates trial left hip hardware noted. Postoperative f ilms demonstrate left total hip hardware in good position and alignment. Overlying operative soft ti ssue changes are noted.
--- NOTE | 2016-11-01 18:41 | OR ---
SURGEON: Jessica Avila MD DATE OF PROCEDURE: 11/01/2016 PREOPERATIVE DIAGNOSIS: Left displaced femoral neck fracture. POSTOPERATIVE DIAGNOSIS: Left displaced femoral neck fracture. PROCEDURE: Left hip hemiarthroplasty. HOPPER ATTENDANT: Nicole Ledezma PA-C. ANESTHESIA: General. ESTIMATED BLOOD LOSS: 500 mL. TOURNIQUET TIME: 0 minutes. COMPLICATIONS: None. DVT PROPHYLAXIS: PAS boot to the nonoperative leg. IMPLANTS USED: Gómez M/L taper hip prosthesis femoral stem size 11, neutral neck, 47 mm bipolar head. BRIEF HISTORY: Natalya is an 86-year-old female, who has a history of stage IV colon cancer with metastases. She had elected to go into hospice as she did not wish any further treatment for her colon cancer. She sustained a fall yesterday in which she was found to have a displaced fracture of the left femoral neck. I had a long discussion with the patient and her family regarding conservative and surgical treatment options. They elected to proceed with surgical treatment. The risks and goals of procedure were discussed with the patient and were documented preoperatively. She was seen by the hospitalist preoperatively for medical evaluation. The patient agreed to proceed with surgery. DESCRIPTION OF PROCEDURE: The patient was properly identified and brought to the operating room. General anesthesia was administered on the OR cart. After adequate anesthesia was obtained, she was transferred to the operating room table. She was placed in a lateral decubitus position with the left lower extremity elevated. A PEG board was used to secure her pelvis and torso. Care was taken to pad all bony prominences. The left lower extremity was then prepped in standard fashion using ChloraPrep solution. It was then sterilely draped. A time-out was performed to ensure correct site and procedure. Preoperative antibiotics were given. The surgical site had been marked preoperatively. An incision was made centered over the greater trochanter. The subcutaneous tissues were incised down to the level of the iliotibial band and tensor fascia cristal. These were then incised. A Charnley retractor was placed. The hip was brought into an internally rotated position. The piriformis was palpated posteriorly, this was then removed from the bone and tagged with suture. The capsule was then incised. The lesser trochanter was palpated and an oscillating saw was used to make a cut through the femoral neck approximately one fingerbreadth proximal to the lesser trochanter. The neck portion was then removed. The femoral head was then delivered into the wound without difficulty. The acetabulum was irrigated with Pulsavac solution. No significant degenerative changes were noted. No loose bodies appeared within the acetabulum. The portion of the femoral head that was removed was sized. I did trial both a 47 mm head and a 48 mm head. I felt that the 47 mm head had better fit and we elected to proceed with this. The hip was then brought into an internally rotated position. The femoral neck elevator was placed. A box cutting osteotome was used to obtain lateral position to the femoral canal. A canal-finding reamer was then used to open up the canal. The proximal femur was then sequentially reamed with broaches to a size 11. Care was taken to place the broach into the proper position with a slight amount of anteversion. The 11 mm broach appeared to fit quite well. There was no evidence of rotational instability. A trial was then made with a standard neck, +0 head, and 47 mm head. The trial prosthesis was reduced into the acetabulum without difficulty. She had good extension and there did not appear to be any tightness with this. Her leg lengths did appear symmetric. She had good stability with 90 degrees of hip flexion, 60 degrees of internal rotation and adduction before any sign of instability was noted. A portable x- ray was obtained which showed good fill of the proximal femur. I did not feel that we could proceed to a larger size and it was elected to proceed with the size 11. The hip was then redislocated and the trial components were removed. The wound was copiously irrigated including the femoral canal. A size 11 prosthesis with standard offset was then placed. This filled the canal nicely and did not appear to have any rotational instability. The calcar was visualized throughout the procedure and no crack was noted with insertion. The +0 neck and 47 mm bipolar head were assembled on the back table. These were placed onto the prosthesis and malleted into position. The hip was again reduced. It was taken through the same test for stability with no change. The wound was then copiously irrigated with saline solution. The piriformis was reattached to the greater trochanter with bone tunnels. The capsule was also reapproximated. The iliotibial band was closed with #1 Vicryl and the subcutaneous tissues were closed with 2-0 Vicryl, and the skin was closed with ethel. Xeroform gauze was placed over the wound and a bulky dressing was applied. She was placed into a hip abductor pillow. She was transferred back to the operating room cart and brought to recovery room in stable condition. All needle and sponge counts were correct. KAL / LILY /[id number]
[2016-11-01] MEDS: HYDROmorphone 2 MG/ML Syringe IVPUSH PRN ×2 (19:22→22:21)
[2016-11-01] MEDS: ceFAZolin 1 GM in Premix Bag 1 BAG IV SCH (19:53)
--- NOTE | 2016-11-01 22:06 | PCM.PN ---
- General Info Date of Service: 11/01/16 Functional Status: Reports: pain controlled, tolerating diet, urinating (alexandra) - Review of Systems General: Reports: No Symptoms HEENT: Reports: no symptoms, other (dry mouth "could drink a quart") Pulmonary: Reports: no symptoms Cardiovascular: Reports: No Symptoms Gastrointestinal: Reports: No symptoms Genitourinary: Reports: no symptoms Musculoskeletal: Reports: leg pain (getting analgesia) - Patient Data Vitals - most recent: Last Vital Signs Temp 36.3 C 11/01/16 16:00 Pulse 82 11/01/16 18:00 Resp 20 11/01/16 18:00 BP 133/63 11/01/16 18:00 Pulse Ox 97 11/01/16 18:00 Weight - most recent: 48.5 kg I&O - last 24 hours: Intake & Output 11/01/16 11/01/16 11/01/16 06:59 14:59 22:59 Intake Total 340 1400 755 Output Total 900 100 800 Balance -560 1300 -45 Lab Results last 24 hrs: Laboratory Results - last 24 hr 10/31/16 11/01/16 11/01/16 Range/Units 11:37 05:03 05:03 Hgb 9.8 L (12.0-16.0) g/dL Hct 30.3 L (36.0-46.0) % Sodium 136 (136-146) mmol/L Potassium 3.7 (3.5-5.1) mmol/L Chloride 107 (98-110) mmol/L Carbon Dioxide 19 L (21-31) mmol/L BUN 24 H (6.0-23.0) mg/dL Creatinine 0.8 (0.6-1.5) mg/dL Est Cr Clr Drug Dosing TNP Estimated GFR (MDRD) > 60.0 ml/min Glucose 100 (60-110) mg/dL Calcium 9.6 (8.8-10.8) mg/dL Blood Type A POSITIVE Antibody Screen NEGATIVE Crossmatch See Detail Med Orders - Current: Current Medications Cetirizine HCl (Zyrtec) 5 mg PO DAILY PRN PRN Reason: Allergies Hydrochlorothiazide (Hydrochlorothiazide) 25 mg PO DAILY [facility] Last Admin: 11/01/16 09:08 Dose: Not Given Hydromorphone HCl (Dilaudid) 0.25 mg IVPUSH Q2H PRN PRN Reason: Pain (severe 7-10) Last Admin: 11/01/16 19:22 Dose: 0.25 mg Potassium Chloride/Sodium Chloride (Normal Saline With 40 Meq Kcl) 1,000 mls @ 50 mls/hr IV STAT [facility] Last Admin: 11/01/16 09:07 Dose: 50 mls/hr Cefazolin Sodium/Dextrose 1 gm (/ Premix) 50 mls @ 100 mls/hr IV Q8H [facility] Stop: 11/02/16 04:29 Last Admin: 11/01/16 19:53 Dose: 100 mls/hr Omeprazole (Omeprazole) 20 mg PO ACBREAKFAST [facility] Last Admin: 11/01/16 06:59 Dose: Not Given Ramipril (Altace) 5 mg PO DAILY [facility] Last Admin: 11/01/16 09:08 Dose: Not Given Discontinued Medications Cefazolin Sodium (Ancef) Confirm Administered Dose 1 gm .ROUTE .STK-MED ONE Stop: 11/01/16 11:25 Enoxaparin Sodium (Lovenox) 40 mg SUBCUT Q12HR [facility] Etomidate (Amidate) Confirm Administered Dose 40 mg IVPUSH .STK-MED ONE Stop: 11/01/16 10:14 Fentanyl (Sublimaze) Confirm Administered Dose 250 mcg .ROUTE .STK-MED ONE Stop: 11/01/16 10:14 Fentanyl (Sublimaze) Confirm Administered Dose 250 mcg .ROUTE .STK-MED ONE Stop: 11/01/16 12:00 Sodium Chloride (Normal Saline) 1,000 mls @ 125 mls/hr IV STAT [facility] Last Admin: 10/31/16 04:52 Dose: 125 mls/hr Cefazolin Sodium/Dextrose 1 gm (/ Premix) 50 mls @ 100 mls/hr IV ONETIME ONE Stop: 11/01/16 11:42 Last Admin: 11/01/16 14:03 Dose: Not Given Sodium Chloride (Normal Saline) Confirm Administered Dose 20 mls @ as directed .ROUTE .STK-MED ONE Stop: 11/01/16 11:25 Levetiracetam (Keppra) 500 mg PO BID [facility] Last Admin: 10/31/16 11:00 Dose: Not Given Lidocaine HCl (Xylocaine-Mpf 1%) Confirm Administered Dose 5 ml .ROUTE .STK-MED ONE Stop: 11/01/16 10:14 Midazolam HCl (Versed 1 Mg/Ml) Confirm Administered Dose 2 mg .ROUTE .STK-MED ONE Stop: 11/01/16 10:14 Morphine Sulfate (Morphine) 1 mg IV ONETIME ONE Stop: 10/31/16 04:17 Last Admin: 10/31/16 04:51 Dose: 1 mg Non-Formulary Medication (Potassium Gluconate [Potassium]) 40 meq PO BID [facility] Last Admin: 10/31/16 16:07 Dose: Not Given Omeprazole (Omeprazole) 20 mg PO ACBREAKFAST [facility] Ondansetron HCl (Zofran) Confirm Administered Dose 4 mg .ROUTE .STK-MED ONE Stop: 11/01/16 10:14 Phenylephrine HCl (Jeronimo-Synephrine) Confirm Administered Dose 10 mg .ROUTE .STK- MED ONE Stop: 11/01/16 10:26 Ramipril (Altace) 5 mg PO DAILY [facility] Rocuronium [place] (Zemuron) Confirm Administered Dose 100 mg .ROUTE .STK-MED ONE Stop: 11/01/16 10:14 Succinylcholine Chloride (Succinylcholine In Ns Pf) Confirm Administered Dose 200 mg .ROUTE .STK-MED ONE Stop: 11/01/16 10:14 - Exam General: alert, oriented Lungs: Clear to auscultation Cardiovascular: Regular Rate Abdomen: bowel sounds present Extremities: no edema (wearing plexipulses) Skin: warm, dry - Problem List Review Problem List Initiated/Reviewed/Updated: Yes - Assessment Assessment:: stable post op lovenox - Plan Plan:: fracture Left femoral neck colon no increased risk for surgerycancer with mets to [place] excellent performance status with
[2016-11-02] MEDS: HYDROmorphone 2 MG/ML Syringe IVPUSH PRN (03:14)
[2016-11-02] MEDS: ceFAZolin 1 GM in Premix Bag 1 BAG IV SCH (03:14)
[2016-11-02] MEDS: Omeprazole 20 MG Cap.CR PO SCH (06:39)
--- NOTE | 2016-11-02 07:58 | PCM.SURGPN ---
- General Info Date of Service: 11/02/16 Date of Surgery/Procedure: 11/01/16 POD#: 1 Functional Status: Reports: pain controlled - Review of Systems General: Reports: No Symptoms Pulmonary: Denies: shortness of breath Cardiovascular: Denies: Chest Pain, Palpitations Gastrointestinal: Denies: Nausea Systems Review Comment:: pt up in bed, eating breakfast pain controlled with medications no specific concerns today pt received 1u PRBC yesterday intra-op - Patient Data Vitals - most recent: Last Vital Signs Temp 99.0 F 11/02/16 02:00 Pulse 85 11/02/16 02:00 Resp 18 11/02/16 02:00 BP 125/60 11/02/16 02:00 Pulse Ox 93 L 11/02/16 02:00 Weight - most recent: 48.5 kg I&O - last 24 hours: Intake & Output 11/01/16 11/02/16 11/02/16 22:59 06:59 14:59 Intake Total 755 800 Output Total 800 400 Balance -45 400 Lab Results last 24 hrs: Laboratory Results - last 24 hr 10/31/16 Range/Units 11:37 Blood Type A POSITIVE Antibody Screen NEGATIVE Crossmatch See Detail Med Orders - Current: Current Medications Cetirizine HCl (Zyrtec) 5 mg PO DAILY PRN PRN Reason: Allergies Enoxaparin Sodium (Lovenox) 40 mg SUBCUT Q12HR [facility] Hydrochlorothiazide (Hydrochlorothiazide) 25 mg PO DAILY [facility] Last Admin: 11/01/16 09:08 Dose: Not Given Hydromorphone HCl (Dilaudid) 0.25 mg IVPUSH Q2H PRN PRN Reason: Pain (severe 7-10) Last Admin: 11/02/16 03:14 Dose: 0.25 mg Potassium Chloride/Sodium Chloride (Normal Saline With 40 Meq Kcl) 1,000 mls @ 50 mls/hr IV STAT [facility] Last Admin: 11/01/16 09:07 Dose: 50 mls/hr Omeprazole (Omeprazole) 20 mg PO ACBREAKFAST [facility] Last Admin: 11/02/16 06:39 Dose: 20 mg Ramipril (Altace) 5 mg PO DAILY [facility] Last Admin: 11/01/16 09:08 Dose: Not Given Discontinued Medications Cefazolin Sodium (Ancef) Confirm Administered Dose 1 gm .ROUTE .STK-MED ONE Stop: 11/01/16 11:25 Enoxaparin Sodium (Lovenox) 40 mg SUBCUT Q12HR [facility] Etomidate (Amidate) Confirm Administered Dose 40 mg IVPUSH .STK-MED ONE Stop: 11/01/16 10:14 Fentanyl (Sublimaze) Confirm Administered Dose 250 mcg .ROUTE .STK-MED ONE Stop: 11/01/16 10:14 Fentanyl (Sublimaze) Confirm Administered Dose 250 mcg .ROUTE .STK-MED ONE Stop: 11/01/16 12:00 Sodium Chloride (Normal Saline) 1,000 mls @ 125 mls/hr IV STAT [facility] Last Admin: 10/31/16 04:52 Dose: 125 mls/hr Cefazolin Sodium/Dextrose 1 gm (/ Premix) 50 mls @ 100 mls/hr IV ONETIME ONE Stop: 11/01/16 11:42 Last Admin: 11/01/16 14:03 Dose: Not Given Sodium Chloride (Normal Saline) Confirm Administered Dose 20 mls @ as directed .ROUTE .STK-MED ONE Stop: 11/01/16 11:25 Cefazolin Sodium/Dextrose 1 gm (/ Premix) 50 mls @ 100 mls/hr IV Q8H [facility] Stop: 11/02/16 04:29 Last Admin: 11/02/16 03:14 Dose: 100 mls/hr Levetiracetam (Keppra) 500 mg PO BID [facility] Last Admin: 10/31/16 11:00 Dose: Not Given Lidocaine HCl (Xylocaine-Mpf 1%) Confirm Administered Dose 5 ml .ROUTE .STK-MED ONE Stop: 11/01/16 10:14 Midazolam HCl (Versed 1 Mg/Ml) Confirm Administered Dose 2 mg .ROUTE .STK-MED ONE Stop: 11/01/16 10:14 Morphine Sulfate (Morphine) 1 mg IV ONETIME ONE Stop: 10/31/16 04:17 Last Admin: 10/31/16 04:51 Dose: 1 mg Non-Formulary Medication (Potassium Gluconate [Potassium]) 40 meq PO BID [facility] Last Admin: 10/31/16 16:07 Dose: Not Given Omeprazole (Omeprazole) 20 mg PO ACBREAKFAST [facility] Ondansetron HCl (Zofran) Confirm Administered Dose 4 mg .ROUTE .STK-MED ONE Stop: 11/01/16 10:14 Phenylephrine HCl (Jeronimo-Synephrine) Confirm Administered Dose 10 mg .ROUTE .STK- MED ONE Stop: 11/01/16 10:26 Ramipril (Altace) 5 mg PO DAILY [facility] Rocuronium [place] (Zemuron) Confirm Administered Dose 100 mg .ROUTE .STK-MED ONE Stop: 11/01/16 10:14 Succinylcholine Chloride (Succinylcholine In Ns Pf) Confirm Administered Dose 200 mg .ROUTE .STK-MED ONE Stop: 11/01/16 10:14 - Exam Wound/Incisions: dressing dry and intact General: alert, oriented Cardiovascular: Regular Rate, Regular Rhythm Extremities: no edema, normal pulses, no calf tenderness, other (LLE - at/ehl/ gastroc 5/5, dp 2+, sensation intact distally) Physical Findings Comment:: vss, afeb hgb not drawn - will order to be drawn now and in AM - Problem List Review Problem List Initiated/Reviewed/Updated: Yes - My Orders Last 24 Hours: Active Orders 24 hr Category Date Time Status Verify Patient Consent Obtain [RC] ASDIRECTED Care 11/01/16 10:23 Active PT Evaluation and Treatment [CONS] Routine Cons 11/01/16 12:51 Active HEMOGLOBIN/HEMATOCRIT,HH [HEME] DAILY Lab 11/02/16 06:00 Ordered HEMOGLOBIN/HEMATOCRIT,HH [HEME] DAILY Lab 11/03/16 06:00 Ordered HEMOGLOBIN/HEMATOCRIT,HH [HEME] DAILY Lab 11/04/16 06:00 Ordered RED BLOOD CELLS LP [BBK] Stat Lab 11/01/16 10:14 Results Enoxaparin [Lovenox] Med 11/02/16 09:00 Active 40 mg SUBCUT Q12HR Ice Therapy [OM.PC] Routine Oth 11/01/16 12:53 Ordered Medication Administration Instruction [OM.PC] Routine Oth 11/01/16 10:23 Ordered Transfuse Red Blood Cells [COMM] Stat Oth 11/01/16 12:18 Ordered Medication Orders Cetirizine HCl (Zyrtec) 5 mg PO DAILY PRN PRN Reason: Allergies Enoxaparin Sodium (Lovenox) 40 mg SUBCUT Q12HR [facility] Hydrochlorothiazide (Hydrochlorothiazide) 25 mg PO DAILY [facility] Last Admin: 11/01/16 09:08 Dose: Admin: 10/31/16 11:43 Dose: 25 mg Hydromorphone HCl (Dilaudid) 0.25 mg IVPUSH Q2H PRN PRN Reason: Pain (severe 7-10) Last Admin: 11/02/16 03:14 Dose: 0.25 mg Admin: 11/01/16 22:21 Dose: 0.25 mg Admin: 11/01/16 19:22 Dose: 0.25 mg Admin: 10/31/16 22:32 Dose: 0.25 mg Admin: 10/31/16 09:50 Dose: 0.25 mg Potassium Chloride/Sodium Chloride (Normal Saline With 40 Meq Kcl) 1,000 mls @ 50 mls/hr IV STAT [facility] Last Admin: 11/01/16 09:07 Dose: 50 mls/hr Infusion: 11/01/16 05:50 Dose: 50 mls/hr Admin: 10/31/16 09:50 Dose: 50 mls/hr Omeprazole (Omeprazole) 20 mg PO ACBREAKFAST [facility] Last Admin: 11/02/16 06:39 Dose: 20 mg Admin: 11/01/16 06:59 Dose: Admin: 10/31/16 11:43 Dose: 20 mg Ramipril (Altace) 5 mg PO DAILY [facility] Last Admin: 11/01/16 09:08 Dose: Admin: 10/31/16 11:44 Dose: 5 mg - Assessment Assessment (Free Text/Narrative):: POD#1 L hip hemiarthroplasty acute posthemorrhagic anemia - Plan Plan (Free Text/Narrative):: continue pain management hospitalist has ordered lovenox as DVT prophylaxis PT with posterior hip precautions, adductor pillow in bed H+H now and in AM will change dressing in AM dispo: to short-term Rehab in AM
[2016-11-02] MEDS ORDERED: Enoxaparin 40 MG/0.4 ML Syringe SUBCUT SCH (09:00)
[2016-11-02] MEDS ORDERED: Enoxaparin 30 MG/0.3 ML Syringe SUBCUT SCH (09:00)
[2016-11-02] MEDS: Hydrochlorothiazide 25 MG Tab PO SCH (09:25)
[2016-11-02] MEDS: Acetaminophen/HYDROcodone 325-5 MG Tab PO PRN ×2 (09:32→16:40)
--- NOTE | 2016-11-02 10:23 | PCM.PN ---
- General Info Date of Service: 11/02/16 Admission Dx/Problem (Free Text): Admission Diagnosis/Problem Admission Diagnosis/Problem Fracture of left femoral neck Subjective Update: Doing well this morning. Pain to L hip is controlled well with pain medications. No chest pain or SOB. No N/V, feeling like she needs to have BM, but unable to this am. Has not been out of bed yet since surgery. Plan to discharge tomorrow to [place] for short term rehab. Functional Status: Reports: pain controlled, tolerating diet. Denies: ambulating - Review of Systems General: Reports: No Symptoms. Denies: Fever HEENT: Reports: no symptoms. Denies: sinus congestion, sore throat Pulmonary: Reports: no symptoms. Denies: shortness of breath, cough, sputum Cardiovascular: Reports: No Symptoms. Denies: Chest Pain, Edema Gastrointestinal: Reports: No symptoms. Denies: Abdominal pain, Nausea, Vomiting Musculoskeletal: Reports: joint pain (L hip), other (bilateral heel pain, asked to have heels elevated. ) Skin: Reports: no symptoms Neurological: Reports: No Symptoms Psychiatric: Reports: no symptoms - Patient Data Vitals - most recent: Last Vital Signs Temp 99.4 F 11/02/16 06:00 Pulse 88 11/02/16 06:00 Resp 16 11/02/16 06:00 BP 116/62 11/02/16 09:26 Pulse Ox 93 L 11/02/16 09:00 Weight - most recent: 48.5 kg I&O - last 24 hours: Intake & Output 11/01/16 11/02/16 11/02/16 22:59 06:59 14:59 Intake Total 755 800 Output Total 800 400 Balance -45 400 Lab Results last 24 hrs: Laboratory Results - last 24 hr 10/31/16 11/02/16 Range/Units 11:37 08:33 Hgb 9.3 L (12.0-16.0) g/dL Hct 28.8 L (36.0-46.0) % Blood Type A POSITIVE Antibody Screen NEGATIVE Crossmatch See Detail Med Orders - Current: Current Medications Hydrocodone Bitart/Acetaminophen ([place] 325-5 Mg) 1 - 2 tab PO Q4H PRN PRN Reason: Pain Last Admin: 11/02/16 09:32 Dose: 2 tab Cetirizine HCl (Zyrtec) 5 mg PO DAILY PRN PRN Reason: Allergies Enoxaparin Sodium (Lovenox) 30 mg SUBCUT Q12HR [facility] Last Admin: 11/02/16 09:28 Dose: 30 mg Hydrochlorothiazide (Hydrochlorothiazide) 25 mg PO DAILY [facility] Last Admin: 11/02/16 09:25 Dose: 25 mg Hydromorphone HCl (Dilaudid) 0.25 mg IVPUSH Q2H PRN PRN Reason: Pain (severe 7-10) Last Admin: 11/02/16 03:14 Dose: 0.25 mg Omeprazole (Omeprazole) 20 mg PO ACBREAKFAST [facility] Last Admin: 11/02/16 06:39 Dose: 20 mg Ramipril (Altace) 5 mg PO DAILY [facility] Last Admin: 11/02/16 09:26 Dose: 5 mg Discontinued Medications Cefazolin Sodium (Ancef) Confirm Administered Dose 1 gm .ROUTE .STK-MED ONE Stop: 11/01/16 11:25 Enoxaparin Sodium (Lovenox) 40 mg SUBCUT Q12HR [facility] Enoxaparin Sodium (Lovenox) 40 mg SUBCUT Q12HR [facility] Etomidate (Amidate) Confirm Administered Dose 40 mg IVPUSH .STK-MED ONE Stop: 11/01/16 10:14 Fentanyl (Sublimaze) Confirm Administered Dose 250 mcg .ROUTE .STK-MED ONE Stop: 11/01/16 10:14 Fentanyl (Sublimaze) Confirm Administered Dose 250 mcg .ROUTE .STK-MED ONE Stop: 11/01/16 12:00 Sodium Chloride (Normal Saline) 1,000 mls @ 125 mls/hr IV STAT [facility] Last Admin: 10/31/16 04:52 Dose: 125 mls/hr Potassium Chloride/Sodium Chloride (Normal Saline With 40 Meq Kcl) 1,000 mls @ 50 mls/hr IV STAT [facility] Last Admin: 11/01/16 09:07 Dose: 50 mls/hr Cefazolin Sodium/Dextrose 1 gm (/ Premix) 50 mls @ 100 mls/hr IV ONETIME ONE Stop: 11/01/16 11:42 Last Admin: 11/01/16 14:03 Dose: Not Given Sodium Chloride (Normal Saline) Confirm Administered Dose 20 mls @ as directed .ROUTE .STK-MED ONE Stop: 11/01/16 11:25 Cefazolin Sodium/Dextrose 1 gm (/ Premix) 50 mls @ 100 mls/hr IV Q8H [facility] Stop: 11/02/16 04:29 Last Admin: 11/02/16 03:14 Dose: 100 mls/hr Levetiracetam (Keppra) 500 mg PO BID [facility] Last Admin: 10/31/16 11:00 Dose: Not Given Lidocaine HCl (Xylocaine-Mpf 1%) Confirm Administered Dose 5 ml .ROUTE .STK-MED ONE Stop: 11/01/16 10:14 Midazolam HCl (Versed 1 Mg/Ml) Confirm Administered Dose 2 mg .ROUTE .STK-MED ONE Stop: 11/01/16 10:14 Morphine Sulfate (Morphine) 1 mg IV ONETIME ONE Stop: 10/31/16 04:17 Last Admin: 10/31/16 04:51 Dose: 1 mg Non-Formulary Medication (Potassium Gluconate [Potassium]) 40 meq PO BID [facility] Last Admin: 10/31/16 16:07 Dose: Not Given Omeprazole (Omeprazole) 20 mg PO ACBREAKFAST [facility] Ondansetron HCl (Zofran) Confirm Administered Dose 4 mg .ROUTE .STK-MED ONE Stop: 11/01/16 10:14 Phenylephrine HCl (Jeronimo-Synephrine) Confirm Administered Dose 10 mg .ROUTE .STK- MED ONE Stop: 11/01/16 10:26 Ramipril (Altace) 5 mg PO DAILY [facility] Rocuronium [place] (Zemuron) Confirm Administered Dose 100 mg .ROUTE .STK-MED ONE Stop: 11/01/16 10:14 Succinylcholine Chloride (Succinylcholine In Ns Pf) Confirm Administered Dose 200 mg .ROUTE .STK-MED ONE Stop: 11/01/16 10:14 - Exam General: alert, oriented, cooperative Neck: supple Lungs: Clear to auscultation, Normal respiratory effort Cardiovascular: Regular Rate, Regular Rhythm Abdomen: bowel sounds present, soft, no tenderness, no distension Extremities: no edema, normal pulses Wound/Incisions: dressing dry and intact Neurological: no new focal deficit - Problem List & Annotations (1) Hip fracture, left SNOMED Code(s): 081205010 Code(s): S72.002A - FRACTURE OF UNSP PART OF NECK OF LEFT FEMUR, INIT Status: Acute Current Visit: Yes (2) HTN (hypertension) SNOMED Code(s): 60119146 Code(s): I10 - ESSENTIAL (PRIMARY) HYPERTENSION Status: Acute Current Visit: Yes Qualifiers: Hypertension type: essential hypertension Qualified Code(s): I10 - Essential (primary) hypertension (3) Colon cancer metastasized to liver SNOMED Code(s): 81947539, 861116230 Code(s): C18.9 - MALIGNANT NEOPLASM OF COLON, UNSPECIFIED; C78.7 - SECONDARY MALIG NEOPLASM OF LIVER AND INTRAHEPATIC BILE DUCT Status: Chronic Current Visit: Yes - Problem List Review Problem List Initiated/Reviewed/Updated: Yes - My Orders Last 24 Hours: My Active Orders 11/02/16 08:01 Acetaminophen/HYDROcodone [Adams 325-5 MG] 1 - 2 tab PO Q4H PRN - Plan Plan:: This 86 year old female admitted for L femoral neck fracture post fall at home 1. S/P L hemiarthoplasty: Order oral pain meds and have IV for severe pain PRN. Colace to be ordered as well. Hgb 9.3 today. PT ordered for evaluation and treatment. 2. HTN: Continue Altace. Stable. 3. Colon ca with mets: Revoked Hospice for hip surgery. Plans to re-enter Hospice after rehabilitation. VTE: Continue Lovenox daily, will speak with Dr. Avila regarding best option for discharge. Dispo: Plan to discharge to [facility] in am
[2016-11-02] MEDS ORDERED: Bisacodyl 10 MG Supp RECTAL PRN (10:48)
[2016-11-02] MEDS: Docusate Sodium 100 MG Cap PO SCH ×2 (11:30→21:40)
--- NOTE | 2016-11-02 11:57 | PCM.SN ---
- Free Text/Narrative Note: Spoke with Dr. Poon regarding transfer to [place]. He has accepted patient upon discharge and transfer to [place].
[2016-11-03] MEDS: Omeprazole 20 MG Cap.CR PO SCH (06:49)
--- NOTE | 2016-11-03 07:57 | PCM.SURGPN ---
- General Info Date of Service: 11/03/16 Date of Surgery/Procedure: 11/01/16 POD#: 2 Functional Status: Reports: pain controlled - Review of Systems General: Reports: No Symptoms Pulmonary: Denies: shortness of breath Cardiovascular: Denies: Chest Pain, Palpitations Gastrointestinal: Denies: Nausea Systems Review Comment:: pt up to chair for breakfast tolerating PO intake well pain controlled with PO pain medications difficulty transferring bed to chair, but able to do so denies CP/palpitations/SOB/dizziness no specific concerns today - Patient Data Vitals - most recent: Last Vital Signs Temp 98.5 F 11/03/16 04:00 Pulse 79 11/03/16 04:00 Resp 18 11/03/16 04:00 BP 103/54 L 11/03/16 04:00 Pulse Ox 95 11/03/16 04:00 Weight - most recent: 48.5 kg I&O - last 24 hours: Intake & Output 11/02/16 11/03/16 11/03/16 22:59 06:59 14:59 Intake Total 640 300 Output Total 850 450 Balance -210 -150 Lab Results last 24 hrs: Laboratory Results - last 24 hr 11/02/16 11/03/16 Range/Units 08:33 05:13 Hgb 9.3 L 8.2 L (12.0-16.0) g/dL Hct 28.8 L 25.1 L (36.0-46.0) % Med Orders - Current: Current Medications Hydrocodone Bitart/Acetaminophen ([place] 325-5 Mg) 1 - 2 tab PO Q4H PRN PRN Reason: Pain Last Admin: 11/02/16 16:40 Dose: 2 tab Bisacodyl (Dulcolax) 10 mg RECTAL DAILY PRN PRN Reason: Constipation Cetirizine HCl (Zyrtec) 5 mg PO DAILY PRN PRN Reason: Allergies Docusate Sodium (Colace) 100 mg PO BID [facility] Last Admin: 11/02/16 21:40 Dose: 100 mg Enoxaparin Sodium (Lovenox) 40 mg SUBCUT Q24H [facility] Hydrochlorothiazide (Hydrochlorothiazide) 25 mg PO DAILY [facility] Last Admin: 11/02/16 09:25 Dose: 25 mg Hydromorphone HCl (Dilaudid) 0.25 mg IVPUSH Q2H PRN PRN Reason: Pain (severe 7-10) Last Admin: 11/02/16 03:14 Dose: 0.25 mg Omeprazole (Omeprazole) 20 mg PO ACBREAKFAST [facility] Last Admin: 11/03/16 06:49 Dose: 20 mg Ramipril (Altace) 5 mg PO DAILY [facility] Last Admin: 11/02/16 09:26 Dose: 5 mg Discontinued Medications Cefazolin Sodium (Ancef) Confirm Administered Dose 1 gm .ROUTE .STK-MED ONE Stop: 11/01/16 11:25 Enoxaparin Sodium (Lovenox) 40 mg SUBCUT Q12HR [facility] Enoxaparin Sodium (Lovenox) 40 mg SUBCUT Q12HR [facility] Enoxaparin Sodium (Lovenox) 30 mg SUBCUT Q12HR [facility] Last Admin: 11/02/16 09:28 Dose: 30 mg Etomidate (Amidate) Confirm Administered Dose 40 mg IVPUSH .STK-MED ONE Stop: 11/01/16 10:14 Fentanyl (Sublimaze) Confirm Administered Dose 250 mcg .ROUTE .STK-MED ONE Stop: 11/01/16 10:14 Fentanyl (Sublimaze) Confirm Administered Dose 250 mcg .ROUTE .STK-MED ONE Stop: 11/01/16 12:00 Sodium Chloride (Normal Saline) 1,000 mls @ 125 mls/hr IV STAT [facility] Last Admin: 10/31/16 04:52 Dose: 125 mls/hr Potassium Chloride/Sodium Chloride (Normal Saline With 40 Meq Kcl) 1,000 mls @ 50 mls/hr IV STAT [facility] Last Admin: 11/01/16 09:07 Dose: 50 mls/hr Cefazolin Sodium/Dextrose 1 gm (/ Premix) 50 mls @ 100 mls/hr IV ONETIME ONE Stop: 11/01/16 11:42 Last Admin: 11/01/16 14:03 Dose: Not Given Sodium Chloride (Normal Saline) Confirm Administered Dose 20 mls @ as directed .ROUTE .STK-MED ONE Stop: 11/01/16 11:25 Cefazolin Sodium/Dextrose 1 gm (/ Premix) 50 mls @ 100 mls/hr IV Q8H [facility] Stop: 11/02/16 04:29 Last Admin: 11/02/16 03:14 Dose: 100 mls/hr Levetiracetam (Keppra) 500 mg PO BID [facility] Last Admin: 10/31/16 11:00 Dose: Not Given Lidocaine HCl (Xylocaine-Mpf 1%) Confirm Administered Dose 5 ml .ROUTE .STK-MED ONE Stop: 11/01/16 10:14 Midazolam HCl (Versed 1 Mg/Ml) Confirm Administered Dose 2 mg .ROUTE .STK-MED ONE Stop: 11/01/16 10:14 Morphine Sulfate (Morphine) 1 mg IV ONETIME ONE Stop: 10/31/16 04:17 Last Admin: 10/31/16 04:51 Dose: 1 mg Non-Formulary Medication (Potassium Gluconate [Potassium]) 40 meq PO BID [facility] Last Admin: 10/31/16 16:07 Dose: Not Given Omeprazole (Omeprazole) 20 mg PO ACBREAKFAST [facility] Ondansetron HCl (Zofran) Confirm Administered Dose 4 mg .ROUTE .STK-MED ONE Stop: 11/01/16 10:14 Phenylephrine HCl (Jeronimo-Synephrine) Confirm Administered Dose 10 mg .ROUTE .STK- MED ONE Stop: 11/01/16 10:26 Ramipril (Altace) 5 mg PO DAILY [facility] Rocuronium [place] (Zemuron) Confirm Administered Dose 100 mg .ROUTE .STK-MED ONE Stop: 11/01/16 10:14 Succinylcholine Chloride (Succinylcholine In Ns Pf) Confirm Administered Dose 200 mg .ROUTE .STK-MED ONE Stop: 11/01/16 10:14 - Exam Wound/Incisions: dressing dry and intact General: alert, oriented Cardiovascular: Regular Rate, Regular Rhythm Extremities: no edema, normal pulses, no calf tenderness, other (LLE - at/ehl/ gastroc 5/5, dp 2+, sensation intact distally) Physical Findings Comment:: vss, afeb (bp 100s/50s, HR 70s) hgb 8.3 - Problem List Review Problem List Initiated/Reviewed/Updated: Yes - My Orders Last 24 Hours: Active Orders 24 hr Category Date Time Status HEMOGLOBIN/HEMATOCRIT,HH [HEME] DAILY Lab 11/04/16 06:00 Ordered Acetaminophen/HYDROcodone [[place] 325-5 MG] Med 11/02/16 08:01 Active 1 - 2 tab PO Q4H PRN Bisacodyl [Dulcolax] Med 11/02/16 10:48 Active 10 mg RECTAL DAILY PRN Docusate Sodium [Colace] Med 11/02/16 11:00 Active 100 mg PO BID Enoxaparin [Lovenox] Med 11/03/16 09:00 Active 40 mg SUBCUT Q24H Medication Orders Hydrocodone Bitart/Acetaminophen ([place] 325-5 Mg) 1 - 2 tab PO Q4H PRN PRN Reason: Pain Last Admin: 11/02/16 16:40 Dose: 2 tab Admin: 11/02/16 09:32 Dose: 2 tab Bisacodyl (Dulcolax) 10 mg RECTAL DAILY PRN PRN Reason: Constipation Cetirizine HCl (Zyrtec) 5 mg PO DAILY PRN PRN Reason: Allergies Docusate Sodium (Colace) 100 mg PO BID [facility] Last Admin: 11/02/16 21:40 Dose: 100 mg Admin: 11/02/16 11:30 Dose: 100 mg Enoxaparin Sodium (Lovenox) 40 mg SUBCUT Q24H [facility] Hydrochlorothiazide (Hydrochlorothiazide) 25 mg PO DAILY [facility] Last Admin: 11/02/16 09:25 Dose: 25 mg Admin: 11/01/16 09:08 Dose: Admin: 10/31/16 11:43 Dose: 25 mg Hydromorphone HCl (Dilaudid) 0.25 mg IVPUSH Q2H PRN PRN Reason: Pain (severe 7-10) Last Admin: 11/02/16 03:14 Dose: 0.25 mg Admin: 11/01/16 22:21 Dose: 0.25 mg Admin: 11/01/16 19:22 Dose: 0.25 mg Admin: 10/31/16 22:32 Dose: 0.25 mg Admin: 10/31/16 09:50 Dose: 0.25 mg Omeprazole (Omeprazole) 20 mg PO ACBREAKFAST [facility] Last Admin: 11/03/16 06:49 Dose: 20 mg Admin: 11/02/16 06:39 Dose: 20 mg Admin: 11/01/16 06:59 Dose: Admin: 10/31/16 11:43 Dose: 20 mg Ramipril (Altace) 5 mg PO DAILY [facility] Last Admin: 11/02/16 09:26 Dose: 5 mg Admin: 11/01/16 09:08 Dose: Admin: 10/31/16 11:44 Dose: 5 mg - Assessment Assessment (Free Text/Narrative):: POD#2 L hip hemiarthroplasty acute posthemorrhagic anemia - Plan Plan (Free Text/Narrative):: continue PT, pain management pt is asymptomatic from hgb orthopedically stable to transfer to Rehab see d/ch instructions appreciate hospitalist management
[2016-11-03 08:14] LABS: CHLORIDE,CL 104 mmol/L (98-110); SODIUM,NA 132 mmol/L (136-146)
[2016-11-03] MEDS ORDERED: Enoxaparin 40 MG/0.4 ML Syringe SUBCUT SCH (09:00)
[2016-11-03] MEDS: Docusate Sodium 100 MG Cap PO SCH (10:00)
[2016-11-03] MEDS: Hydrochlorothiazide 25 MG Tab PO SCH (10:00)
[2016-11-03] MEDS: Acetaminophen/HYDROcodone 325-5 MG Tab PO PRN (10:26)
[2016-11-03 12:31] VITALS: BP 118/58
--- NOTE | 2016-11-03 13:21 | PCM.DCSUM1 ---
Discharge Summary - Hospital Course Brief History: This 86 year old female with pmh of HTN and colon cancer presented to the ED on 10/31/2016 after falling at home. She fell early that morning, landing on her left hip. Denied LOC or other injuries. She feels she fell due to her peripheral neuropathy, she did not have syncope or chest pain. In the ED she was found to have displaced fracture of the left femoral neck. No previous h/o left hip pain. Patient has h/o metastatic colon cancer and was on Hospice. She lives alone and is an independent ambulator. Currently only c/o left hip pain. - Discharge Data Discharge Date: 11/03/16 Discharge Disposition: DC/Tfer to SNF 03 Condition: Good - Discharge Diagnosis/Problem(s) (1) Hip fracture, left SNOMED Code(s): 856346668 ICD Code: S72.002A - FRACTURE OF UNSP PART OF NECK OF LEFT FEMUR, INIT Status: Acute Current Visit: Yes (2) HTN (hypertension) SNOMED Code(s): 37417372 ICD Code: I10 - ESSENTIAL (PRIMARY) HYPERTENSION Status: Acute Current Visit: Yes Qualifiers: Hypertension type: essential hypertension Qualified Code(s): I10 - Essential (primary) hypertension (3) Colon cancer metastasized to liver SNOMED Code(s): 41838388, 879966816 ICD Code: C18.9 - MALIGNANT NEOPLASM OF COLON, UNSPECIFIED; C78.7 - SECONDARY MALIG NEOPLASM OF LIVER AND INTRAHEPATIC BILE DUCT Status: Chronic Current Visit: Yes - Patient Summary/Data Operative Procedure(s) Performed: L hip hemiarthroplasty Consults: Consultations 10/31/16 09:42 Consult to Physician [CONS] Routine 11/01/16 12:51 PT Evaluation and Treatment [CONS] Routine - Patient Instructions Diet: Usual Diet as Tolerated Activity: Apply Ice, Full Weight Bearing, No Strenuous Activities Activity, Other: Use FWW for ambulation assistance. FWB/WBAT to LLE. Driving: Do Not Drive Showering/Bathing: May Shower, No Tub Bathing/Swimming Showering/Bathing, Other: Okay to shower over Aquacel dressing. NO TUB BATHING. Wound/Incision Care: Keep Operative Site/Wound Site Clean and Dry, Do NOT Change Dressing Notify Provider of: Fever, Increased Pain, Swelling and Redness, Drainage, Nausea and/or Vomiting Other/Special Instructions: PT/OT daily while in Rehab. Polar care to L hip as needed. JUANITO douglas, on in AM, off in PM. - Discharge Plan Prescriptions/Med Rec: Acetaminophen/HYDROcodone [[place] 325-5 MG] 2 tab PO Q4H PRN #60 tablet PRN Reason: Pain Bisacodyl [Dulcolax] 10 mg RECTAL DAILY PRN #10 supp PRN Reason: Constipation Docusate Sodium [Colace] 100 mg PO BID #30 cap Home Medications: Home Meds Calcium Carbonate [Calcium] 600 mg PO DAILY 03/05/14 [History] Cetirizine [ZyrTEC] 5 mg PO DAILY PRN 03/05/14 [History] Hydrochlorothiazide 25 mg PO DAILY 03/05/14 [History] Ramipril [Altace] 5 mg PO DAILY 03/05/14 [History] Omeprazole Magnesium [Prilosec Otc] 20 mg PO DAILY 03/14/14 [History] Aspirin 81 mg PO DAILY 06/27/16 [History] Potassium Chloride [Klor-Con M10] 40 meq PO BID 10/31/16 [History] Acetaminophen/HYDROcodone [[place] 325-5 MG] 2 tab PO Q4H PRN #60 tablet 11/03/16 [Rx] Bisacodyl [Dulcolax] 10 mg RECTAL DAILY PRN #10 supp 11/03/16 [Rx] Docusate Sodium [Colace] 100 mg PO BID #30 cap 11/03/16 [Rx] Patient Handouts: Acetaminophen; Hydrocodone tablets or capsules, Partial Hip Replacement, Care After, Bisacodyl suppositories, Docusate capsules, Hypertension Referrals: Nicole Ledezma PA-C [Physician Research Quality Assurance Specialist] - 11/14/16 9:45 am (If you have questions or concerns prior to your follow-up appointment, please call Dr. Avila 's office. ) Gilles Poon MD [Physician] - (, November 09, 2016) - Discharge Summary/Plan Comment DC Time >30 min.: No Discharge Summary/Plan Comment: Discharge diagnoses: L femoral neck fracture S/p L hemiarthroplasty HTN Metastatic colon cancer Natalya was admitted and revoked Hospice care. She wanted to have her hip fixed and obtain rehabilitation. She was admitted and Dr Avila performed a L Hemiarthoplasty. She tolerated surgery well and has done well post-operatively. Hgb today was noted at 8.2, maybe related to surgery. She is asymptomatic. BP and HR stable. There was discussion about VTE prophylaxis upon discharge and after discussion Mikie do not want to continue with this, they understand there is hypercoaguability with cancer as well as recent major surgery. They do not want to risk the chance of bleeding and understand the risks. Will resume all home medications as previously ordered, will also send with Neches 2 tabs by mouth every 4 hours pRN pain #60. She will follow up with Dr. Avila as outpatient and with PCP. She will be transferred to [place] for short term rehab with the hope to return home and ultimately return to Hospice care. - General Info Date of Service: 11/03/16 Admission Dx/Problem (Free Text: Admission Diagnosis/Problem Admission Diagnosis/Problem Fracture of left femoral neck Subjective Update: Doing well this morning. Sitting up in chair. Pain to L hip is controlled well with pain medications. No chest pain or SOB. No N/V. Functional Status: Reports: pain controlled, tolerating diet, ambulating - Review of Systems General: Reports: No Symptoms. Denies: Fever HEENT: Reports: no symptoms. Denies: sinus congestion, sore throat Pulmonary: Reports: no symptoms. Denies: shortness of breath, cough, sputum Cardiovascular: Reports: No Symptoms. Denies: Chest Pain, Palpitations, Edema Gastrointestinal: Reports: No symptoms. Denies: Abdominal pain, Nausea, Vomiting Genitourinary: Reports: no symptoms. Denies: dysuria, frequency, burning Musculoskeletal: Reports: joint pain (L hip pain) Skin: Reports: no symptoms Neurological: Reports: No Symptoms Psychiatric: Reports: no symptoms - Patient Data Vitals - Most Recent: Last Vital Signs Temp 98.6 F 11/03/16 12:00 Pulse 70 11/03/16 12:00 Resp 16 11/03/16 12:00 BP 118/58 L 11/03/16 12:00 Pulse Ox 96 11/03/16 12:00 Weight - Most Recent: 48.5 kg I&O - Last 24 hours: Intake & Output 11/02/16 11/03/16 11/03/16 22:59 06:59 14:59 Intake Total 640 300 Output Total 850 450 Balance -210 -150 Lab Results - Last 24 hrs: Laboratory Results - last 24 hr 11/03/16 11/03/16 Range/Units 05:13 05:13 Hgb 8.2 L (12.0-16.0) g/dL Hct 25.1 L (36.0-46.0) % Sodium 132 L (136-146) mmol/L Potassium 3.7 (3.5-5.1) mmol/L Chloride 104 (98-110) mmol/L Carbon Dioxide 19 L (21-31) mmol/L BUN 28 H (6.0-23.0) mg/dL Creatinine 0.9 (0.6-1.5) mg/dL Est Cr Clr Drug Dosing TNP Estimated GFR (MDRD) 59.4 ml/min Glucose 106 (60-110) mg/dL Calcium 8.8 (8.8-10.8) mg/dL Med Orders - Current: Current Medications Hydrocodone Bitart/Acetaminophen ([place] 325-5 Mg) 1 - 2 tab PO Q4H PRN PRN Reason: Pain Last Admin: 11/03/16 10:26 Dose: 1 tab Bisacodyl (Dulcolax) 10 mg RECTAL DAILY PRN PRN Reason: Constipation Last Admin: 11/03/16 10:26 Dose: 10 mg Cetirizine HCl (Zyrtec) 5 mg PO DAILY PRN PRN Reason: Allergies Docusate Sodium (Colace) 100 mg PO BID [facility] Last Admin: 11/03/16 10:00 Dose: 100 mg Hydrochlorothiazide (Hydrochlorothiazide) 25 mg PO DAILY [facility] Last Admin: 11/03/16 10:00 Dose: 25 mg Hydromorphone HCl (Dilaudid) 0.25 mg IVPUSH Q2H PRN PRN Reason: Pain (severe 7-10) Last Admin: 11/02/16 03:14 Dose: 0.25 mg Omeprazole (Omeprazole) 20 mg PO ACBREAKFAST [facility] Last Admin: 11/03/16 06:49 Dose: 20 mg Ramipril (Altace) 5 mg PO DAILY [facility] Last Admin: 11/03/16 10:00 Dose: 5 mg Discontinued Medications Cefazolin Sodium (Ancef) Confirm Administered Dose 1 gm .ROUTE .STK-MED ONE Stop: 11/01/16 11:25 Enoxaparin Sodium (Lovenox) 40 mg SUBCUT Q12HR [facility] Enoxaparin Sodium (Lovenox) 40 mg SUBCUT Q12HR [facility] Enoxaparin Sodium (Lovenox) 30 mg SUBCUT Q12HR [facility] Last Admin: 11/02/16 09:28 Dose: 30 mg Enoxaparin Sodium (Lovenox) 40 mg SUBCUT Q24H [facility] Etomidate (Amidate) Confirm Administered Dose 40 mg IVPUSH .STK-MED ONE Stop: 11/01/16 10:14 Fentanyl (Sublimaze) Confirm Administered Dose 250 mcg .ROUTE .STK-MED ONE Stop: 11/01/16 10:14 Fentanyl (Sublimaze) Confirm Administered Dose 250 mcg .ROUTE .STK-MED ONE Stop: 11/01/16 12:00 Sodium Chloride (Normal Saline) 1,000 mls @ 125 mls/hr IV STAT [facility] Last Admin: 10/31/16 04:52 Dose: 125 mls/hr Potassium Chloride/Sodium Chloride (Normal Saline With 40 Meq Kcl) 1,000 mls @ 50 mls/hr IV STAT [facility] Last Admin: 11/01/16 09:07 Dose: 50 mls/hr Cefazolin Sodium/Dextrose 1 gm (/ Premix) 50 mls @ 100 mls/hr IV ONETIME ONE Stop: 11/01/16 11:42 Last Admin: 11/01/16 14:03 Dose: Not Given Sodium Chloride (Normal Saline) Confirm Administered Dose 20 mls @ as directed .ROUTE .ST-MED ONE Stop: 11/01/16 11:25 Cefazolin Sodium/Dextrose 1 gm (/ Premix) 50 mls @ 100 mls/hr IV Q8H [facility] Stop: 11/02/16 04:29 Last Admin: 11/02/16 03:14 Dose: 100 mls/hr Levetiracetam (Keppra) 500 mg PO BID [facility] Last Admin: 10/31/16 11:00 Dose: Not Given Lidocaine HCl (Xylocaine-Mpf 1%) Confirm Administered Dose 5 ml .ROUTE .STK-MED ONE Stop: 11/01/16 10:14 Midazolam HCl (Versed 1 Mg/Ml) Confirm Administered Dose 2 mg .ROUTE .STK-MED ONE Stop: 11/01/16 10:14 Morphine Sulfate (Morphine) 1 mg IV ONETIME ONE Stop: 10/31/16 04:17 Last Admin: 10/31/16 04:51 Dose: 1 mg Non-Formulary Medication (Potassium Gluconate [Potassium]) 40 meq PO BID [facility] Last Admin: 10/31/16 16:07 Dose: Not Given Omeprazole (Omeprazole) 20 mg PO ACBREAKFAST [facility] Ondansetron HCl (Zofran) Confirm Administered Dose 4 mg .ROUTE .STK-MED ONE Stop: 11/01/16 10:14 Phenylephrine HCl (Jeronimo-Synephrine) Confirm Administered Dose 10 mg .ROUTE .STK- MED ONE Stop: 11/01/16 10:26 Ramipril (Altace) 5 mg PO DAILY [facility] Rocuronium [place] (Zemuron) Confirm Administered Dose 100 mg .ROUTE .STK-MED ONE Stop: 11/01/16 10:14 Succinylcholine Chloride (Succinylcholine In Ns Pf) Confirm Administered Dose 200 mg .ROUTE .ST-MED ONE Stop: 11/01/16 10:14 - Exam General: Reports: alert, oriented, cooperative Neck: Reports: supple Lungs: Reports: Clear to auscultation, Normal respiratory effort Cardiovascular: Reports: Regular Rate, Regular Rhythm Abdomen: Reports: bowel sounds present, soft, no tenderness, no distension Extremities: Reports: no edema, normal pulses Skin: Reports: ecchymosis (surrounding incision.) Wound/Incisions: Reports: dressing dry and intact. Denies: drainage, erythema Psy/Mental Status: Reports: alert, normal affect, normal mood *Q Meaningful Use (DIS) - VTE *Q VTE Criteria *Q: - Stroke *Q Stroke Criteria *Q: - AMI *Q AMI Criteria *Q:
== END 2016-11-03 13:20 | DRG 470 ==
LOC: MW.ED 02:21 → MW.MS 05:39
PROVIDERS: ADMIT Internal Medicine; ATTEND Internal Medicine
PROC: 0SRS0JZ Replacement of Left Hip Joint, Femoral Surface with Synthetic Substitute, Open Approach (ICD-10-PCS; principal; 2016-10-31)
DX: S72.002A Fracture of unspecified part of neck of left femur, initial encounter for closed fracture (principal); C18.9 Malignant neoplasm of colon, unspecified; C78.7 Secondary malignant neoplasm of liver and intrahepatic bile duct; W19.XXXA Unspecified fall, initial encounter; Y92.019 Unspecified place in single-family (private) house as the place of occurrence of the external cause; Z87.891 Personal history of nicotine dependence; I10 Essential (primary) hypertension; Z79.899 Other long term (current) drug therapy; R51 Headache; M54.2 Cervicalgia
CPT/HCPCS: 36415; 70450; 71010; 72125; 73501; 80053; 81001; 84484; 85025; 85610; 96361; 96374; 99285; J2270; J7040; 01210; 36430; 72170; 72170-26; 80048; 85014; 85018; 86850; 86900; 86901; 86920; 86921; 86922; 88305; 88311; 93005; 97110-GP; 97162-GP; 99283; A9270-GY; C1776; J0690; J1170; J1650; J2250; J2370; J2405; J3010; J3480; P9016

== ENCOUNTER 2018-02-17 18:21 | Observation (INO) | payer MEDICARE, BC ==
--- NOTE | 2018-02-17 18:30 | EDM.PDOC ---
ED HPI GENERAL MEDICAL PROBLEM - General Stated Complaint: STROKE Time Seen by Provider: 02/17/18 18:27 - History of Present Illness INITIAL COMMENTS - FREE TEXT/NARRATIVE: HISTORY AND PHYSICAL: History of present illness: Patient is 80-year-old female history of breast cancer who's had a right mastectomy and was in hospice 1 prior presents now with abrupt altered mental status with associated seizure paramedics were called Ativan was given Narcan was given seizures have discontinued since the Ativan there was no response to Narcan she remains unresponsive she is normally conversant and very normal neurologically per daughter was here she has no advanced directive of DNR and daughter discussed comfort care measures. Review of systems: As per history of present illness and below otherwise all systems reviewed and negative. Past medical history: As per history of present illness and as reviewed below otherwise noncontributory. Surgical history: As per history of present illness and as reviewed below otherwise noncontributory. Social history: No reported history of drug or alcohol abuse. Family history: As per history of present illness and as reviewed below otherwise noncontributory. Physical exam: HEENT: Atraumatic, normocephalic, pupils 1-2 mm and sluggish negative for conjunctival pallor or scleral icterus, mucous membranes moist, trachea midline. Lungs: Clear to auscultation, breath sounds equal bilaterally, chest nontender. Heart: S1S2, regular, negative for clicks, rubs, or JVD. Abdomen: Soft, nondistended, nontender. Negative for masses or hepatosplenomegaly. Negative for costovertebral tenderness. Pelvis: Stable nontender. Genitourinary: Deferred. Rectal: Deferred. Extremities: Atraumatic, negative for cords or calf pain. Neurovascular unremarkable. Neuro: Nonresponsive absent gag reflex Diagnostics: CBC CMP troponin PT/INR UA urine culture and sensitivity blood culture 2 CT brain chest x-ray EKG Therapeutics: IV O2 monitor Impression: #1 altered mental status #2 new-onset seizure #3 history of breast cancer Definitive disposition and diagnosis as appropriate pending reevaluation and review of above. - Related Data Allergies Allergy/AdvReac Type Severity Reaction Status Date / Time No Known Allergies Allergy Verified 02/17/18 18:40 Home Meds: Home Meds Calcium Carbonate [Calcium] 600 mg PO DAILY 03/05/14 [History] Cetirizine [ZyrTEC] 5 mg PO DAILY PRN 03/05/14 [History] Ramipril [Altace] 5 mg PO DAILY 03/05/14 [History] hydroCHLOROthiazide [Hydrochlorothiazide] 25 mg PO DAILY 03/05/14 [History] Omeprazole Magnesium [Prilosec Otc] 20 mg PO DAILY 03/14/14 [History] Aspirin 81 mg PO DAILY 06/27/16 [History] Potassium Chloride [Klor-Con M10] 40 meq PO BID 10/31/16 [History] Acetaminophen/HYDROcodone [[place] 325-5 MG] 2 tab PO Q4H PRN #60 tablet 11/03/16 [Rx] Bisacodyl [Dulcolax] 10 mg RECTAL DAILY PRN #10 supp 11/03/16 [Rx] Docusate Sodium [Colace] 100 mg PO BID #30 cap 11/03/16 [Rx] Past Medical History HEENT History: Reports: Other (See Below) Other HEENT History: on glasses Cardiovascular History: Reports: Hypertension. 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: Musculoskeletal History: Reports: None Neurological History: Reports: None Psychiatric History: Reports: None Endocrine/Metabolic History: Reports: None Hematologic History: Reports: None Oncologic (Cancer) History: Reports: Colon, Liver, Lung, Metastatic Dermatologic History: Reports: None - Infectious Disease History Infectious Disease History: Reports: None - Past Surgical History GI Surgical History: Reports: Other (See Below) Social & Family History - Family History Family Medical History: Noncontributory Oncologic: Reports: Liver Other Oncologic Family History: brother [id number] - Caffeine Use Caffeine Use: Reports: Coffee - Living Situation & Occupation Living situation: Reports: , Alone Occupation: Unemployed ED ROS GENERAL - Review of Systems Review Of Systems: ROS reveals no pertinent complaints other than HPI. ED EXAM, GENERAL - Physical Exam Exam: See Below (See dictation) Course - Vital Signs Last Recorded V/S: Last Vital Signs Temp 36.4 C 02/17/18 18:21 Pulse 101 H 02/17/18 18:21 Resp 20 02/17/18 18:21 BP 110/60 02/17/18 18:21 Pulse Ox 94 L 02/17/18 18:21 - Orders/Labs/Meds Orders: Active Orders 24 hr Category Date Time Status EKG 12 Lead [EKG Documentation Completion] [RC] STAT Care 02/17/18 18:25 Active Head wo Cont [CT] Stat Exams 02/17/18 18:25 Taken CKMB [CHEM] Stat Lab 02/17/18 19:26 Received COMPREHENSIVE METABOLIC PN,CMP [CHEM] Stat Lab 02/17/18 19:26 Received CULTURE BLOOD [BC] Stat Lab 02/17/18 19:26 Received CULTURE BLOOD [BC] Stat Lab 02/17/18 19:39 Received CULTURE URINE [RM] Stat Lab 02/17/18 18:26 Ordered DRUG SCREEN, URINE [URCHEM] Stat Lab 02/17/18 18:26 Ordered INR,PT,PROTHROMBIN TIME [COAG] Stat Lab 02/17/18 19:26 Received PTT,PARTIAL THROMBOPLSTIN TIME [COAG] Stat Lab 02/17/18 19:26 Received TROPONIN I [CHEM] Stat Lab 02/17/18 19:26 Received UA W/MICROSCOPIC [URIN] Stat Lab 02/17/18 18:26 Ordered Phenytoin 1,000 mg Med 02/17/18 19:37 Active Sodium Chloride 0.9% [Normal Saline] 250 ml IV ONETIME Blood Culture x2 Reflex Set [OM.PC] Stat Oth 02/17/18 18:26 Ordered Medication Orders Phenytoin Sodium 1,000 mg/ (Sodium Chloride) 270 mls @ 250 mls/hr IV ONETIME ONE Stop: 02/17/18 20:41 Labs: Laboratory Tests 02/17/18 Range/Units 19:26 WBC 8.87 (4.0-11.0) K/uL RBC 3.53 L (4.30-5.90) M/uL Hgb 10.5 L (12.0-16.0) g/dL Hct 32.9 L (36.0-46.0) % MCV 93.2 (80.0-98.0) fL MCH 29.7 (27.0-32.0) pg MCHC 31.9 (31.0-37.0) g/dL RDW Std Deviation 46.3 (28.0-62.0) fl RDW Coeff of Lisa 14 (11.0-15.0) % Plt Count 217 (150-400) K/uL MPV 9.00 (7.40-12.00) fL Neut % (Auto) 90.7 H (48.0-80.0) % Lymph % (Auto) 6.8 L (16.0-40.0) % [place] % (Auto) 2.3 (0.0-15.0) % Eos % (Auto) 0.0 (0.0-7.0) % Baso % (Auto) 0.2 (0.0-1.5) % Neut # (Auto) 8.1 H (1.4-5.7) K/uL Lymph # (Auto) 0.6 (0.6-2.4) K/uL [place] # (Auto) 0.2 (0.0-0.8) K/uL Eos # (Auto) 0.0 (0.0-0.7) K/uL Baso # (Auto) 0.0 (0.0-0.1) K/uL Nucleated RBC % 0.0 /100WBC Nucleated RBCs # 0 K/uL Meds: Medications Generic Name Dose Route Start Last Admin Trade Name Freq PRN Reason Stop Dose Admin Phenytoin Sodium 1,000 mg/ 270 mls @ 250 mls/hr 02/17/18 19:37 Sodium Chloride IV 02/17/18 20:41 ONETIME ONE Departure - Departure Time of Disposition: 19:47 Disposition: Home, Self-Care 01 Condition: Good Clinical Impression: General weakness, Anorexia, Depression - Discharge Information *PRESCRIPTION DRUG MONITORING PROGRAM REVIEWED*: Not Applicable *COPY OF PRESCRIPTION DRUG MONITORING REPORT IN PATIENT LATOSHA: Not Applicable Additional Instructions: The following information is given to patients seen in the emergency department who are being discharged to home. This information is to outline your options for follow-up care. We provide all patients seen in our emergency department with a follow-up referral. The need for follow-up, as well as the timing and circumstances, are variable depending upon the specifics of your emergency department visit. If you don't have a primary care physician on staff, we will provide you with a referral. We always advise you to contact your personal physician following an emergency department visit to inform them of the circumstance of the visit and for follow-up with them and/or the need for any referrals to a consulting specialist. The emergency department will also refer you to a specialist when appropriate. This referral assures that you have the opportunity for followup care with a specialist. All of these measure are taken in an effort to provide you with optimal care, which includes your followup. Under all circumstances we always encourage you to contact your private physician who remains a resource for coordinating your care. When calling for followup care, please make the office aware that this follow-up is from your recent emergency room visit. If for any reason you are refused follow-up, please contact the [facility] emergency department at and asked to speak to the emergency department charge nurse. Follow-up clinic as discussed return as needed as discussed - My Orders Last 24 Hours: My Active Orders 02/17/18 18:25 EKG 12 Lead [EKG Documentation Completion] [RC] STAT Head wo Cont [CT] Stat 02/17/18 18:26 CULTURE URINE [RM] Stat DRUG SCREEN, URINE [URCHEM] Stat UA W/MICROSCOPIC [URIN] Stat Blood Culture x2 Reflex Set [OM.PC] Stat 02/17/18 19:26 CKMB [CHEM] Stat COMPREHENSIVE METABOLIC PN,CMP [CHEM] Stat CULTURE BLOOD [BC] Stat INR,PT,PROTHROMBIN TIME [COAG] Stat PTT,PARTIAL THROMBOPLSTIN TIME [COAG] Stat TROPONIN I [CHEM] Stat 02/17/18 19:37 Phenytoin 1,000 mg Sodium Chloride 0.9% [Normal Saline] 250 ml IV ONETIME 02/17/18 19:39 CULTURE BLOOD [BC] Stat - Assessment/Plan Last 24 Hours: My Active Orders 02/17/18 18:25 EKG 12 Lead [EKG Documentation Completion] [RC] STAT Head wo Cont [CT] Stat 02/17/18 18:26 CULTURE URINE [RM] Stat DRUG SCREEN, URINE [URCHEM] Stat UA W/MICROSCOPIC [URIN] Stat Blood Culture x2 Reflex Set [OM.PC] Stat 02/17/18 19:26 CKMB [CHEM] Stat COMPREHENSIVE METABOLIC PN,CMP [CHEM] Stat CULTURE BLOOD [BC] Stat INR,PT,PROTHROMBIN TIME [COAG] Stat PTT,PARTIAL THROMBOPLSTIN TIME [COAG] Stat TROPONIN I [CHEM] Stat 02/17/18 19:37 Phenytoin 1,000 mg Sodium Chloride 0.9% [Normal Saline] 250 ml IV ONETIME 02/17/18 19:39 CULTURE BLOOD [BC] Stat
[2018-02-17] MEDS ORDERED: Dexamethasone 10 MG/ML SDV IVPUSH ONE (19:53)
[2018-02-17 20:19] LABS: CHLORIDE,CL 103 mmol/L (98-107); SODIUM,NA 134 mmol/L (136-145)
[2018-02-17] MEDS ORDERED: Morphine 2 MG/ML Syringe IVPUSH ONE (20:25)
[2018-02-17] MEDS ORDERED: Morphine 2 MG/ML Syringe IVPUSH PRN (22:44)
[2018-02-17] MEDS ORDERED: Sodium Chloride 0.9% 10 ML Syringe FLUSH PRN (22:44)
[2018-02-17] MEDS ORDERED: Sodium Chloride 0.9% 2.5 ML Syringe FLUSH PRN (22:44)
[2018-02-17] MEDS ORDERED: Acetaminophen 325 MG Tab PO PRN (22:44)
[2018-02-17] MEDS ORDERED: Acetaminophen/HYDROcodone 325-5 MG Tab PO PRN (22:51)
[2018-02-17] MEDS ORDERED: levETIRAcetam 500 MG/5 ML Solution ML 473 ml Bottle PO SCH (23:00)
[2018-02-17] MEDS ORDERED: Levofloxacin 500 MG Tab PO ONE (23:00)
[2018-02-18] MEDS: levETIRAcetam 500 MG Tab PO SCH ×2 (09:29→22:25)
--- NOTE | 2018-02-18 14:43 | CT ---
EXAM DATE: 02/17/18 PATIENT'S AGE: 88 Patient: RUFINO MUKHERJEE Facility: [place], [place] Site . Site : [id number] Study: CT Head STROKE PROTOCOL WO CONT [id number]/[id number] 6:38:57 PM Ordering Physician: Doctor Anderson Final Report: INDICATION: STROKE CODE. UNRESPONSIVE. CT HEAD WITHOUT CONTRAST TECHNIQUE: Multiple axial CT images were performed through the head without intravenous contrast administration. COMPARISON: 10/31/[address] FINDINGS: There is a poorly defined, 1.3 x 0.9 x 1.1 centimeter slightly hyperdense mass in the posterior right temporal lobe on image 26 of series 201 and image 39 of series 203. There is a moderate amount of hypodensity in the posterior right temporal lobe adjacent to the mass, favored to represent edema, less likely a subacute infarct. There is mild mass effect in this area with effacement of overlying cortical sulci. No midline shift is noted. These findings are new compared to the previous exam. No definite acute intracranial hemorrhage is identified. There is mild diffuse age-related brain atrophy, as before. There is stable patchy hypodensity in the periventricular white matter, a nonspecific finding which most likely reflects chronic small vessel ischemic change. Osseous structures are within normal limits and no fractures are seen. Included portions of the paranasal sinuses and mastoid air cells are normally aerated except for minimal mucosal thickening in the right sphenoid sinus, decreased compared to the previous exam. IMPRESSION: 1. 1.3 x 0.9 x 1.1 centimeter mass in the posterior right temporal lobe with adjacent hypodensity which likely represents edema. Neoplasm is a consideration. MRI is recommended for further evaluation. 2. Age-related brain atrophy and white matter hypodensity consistent with chronic small vessel ischemic change. ANGELES SHAH MD [employer] Dictated by Ty Shah MD @ 02/17/2018 7:03:51 PM Dictated by: Ty Shah MD @ 02/17/2018 19:04:25 (Electronic Signature) Report Signed by Proxy. KEYUR
[2018-02-18] MEDS: Dexamethasone 4 MG Tab PO SCH ×2 (15:05→19:44)
--- NOTE | 2018-02-18 17:04 | PCM.HP ---
H&P History of Present Illness - General Admit Problem/Dx: Admission Diagnosis/Problem Admission Diagnosis/Problem Seizure - Related Data Allergies/Adverse Reactions: Allergies Allergy/AdvReac Type Severity Reaction Status Date / Time No Known Allergies Allergy Verified 02/17/18 18:40 Home Medications: Home Meds Calcium Carbonate [Calcium] 600 mg PO DAILY 03/05/14 [History] Cetirizine [ZyrTEC] 5 mg PO DAILY PRN 03/05/14 [History] Ramipril [Altace] 5 mg PO DAILY 03/05/14 [History] hydroCHLOROthiazide [Hydrochlorothiazide] 25 mg PO DAILY 03/05/14 [History] Omeprazole Magnesium [Prilosec Otc] 20 mg PO DAILY 03/14/14 [History] Aspirin 81 mg PO DAILY 06/27/16 [History] Potassium Chloride [Klor-Con M10] 40 meq PO BID 10/31/16 [History] Past Medical History HEENT History: Reports: Other (See Below) Other HEENT History: on glasses Cardiovascular History: Reports: Hypertension Respiratory History: Reports: None Gastrointestinal History: Reports: None Genitourinary History: Reports: None [employer] History: Reports: Musculoskeletal History: Reports: None Neurological History: Reports: None Psychiatric History: Reports: None Endocrine/Metabolic History: Reports: None Hematologic History: Reports: None Oncologic (Cancer) History: Reports: Colon, Liver, Lung, Metastatic Dermatologic History: Reports: None - Infectious Disease History Infectious Disease History: Reports: None - Past Surgical History GI Surgical History: Reports: Other (See Below) Social & Family History - Family History Family Medical History: Noncontributory Oncologic: Reports: Liver Other Oncologic Family History: brother di10mto - Tobacco Use Smoking Status *Q: Never Smoker Second Hand Smoke Exposure: No - Caffeine Use Caffeine Use: Reports: Coffee - Recreational Drug Use Recreational Drug Use: No - Living Situation & Occupation Living situation: Reports: , Alone Occupation: Unemployed Exam - Vital Signs Vital Signs: Last Vital Signs Temp 98.6 F 02/18/18 15:39 Pulse 79 02/18/18 15:39 Resp 22 H 02/18/18 15:39 BP 120/58 L 02/18/18 15:39 Pulse Ox 96 02/18/18 15:39 Weight: 116 lb - Patient Data Lab Results Last 24 hrs: Laboratory Results - last 24 hr 08/19/18 08/19/18 08/19/18 Range/Units 19:26 19:26 19:26 WBC 8.87 (4.0-11.0) K/uL RBC 3.53 L (4.30-5.90) M/uL Hgb 10.5 L (12.0-16.0) g/dL Hct 32.9 L (36.0-46.0) % MCV 93.2 (80.0-98.0) fL MCH 29.7 (27.0-32.0) pg MCHC 31.9 (31.0-37.0) g/dL RDW Std Deviation 46.3 (28.0-62.0) fl RDW Coeff of Lisa 14 (11.0-15.0) % Plt Count 217 (150-400) K/uL MPV 9.00 (7.40-12.00) fL Neut % (Auto) 90.7 H (48.0-80.0) % Lymph % (Auto) 6.8 L (16.0-40.0) % [place] % (Auto) 2.3 (0.0-15.0) % Eos % (Auto) 0.0 (0.0-7.0) % Baso % (Auto) 0.2 (0.0-1.5) % Neut # (Auto) 8.1 H (1.4-5.7) K/uL Lymph # (Auto) 0.6 (0.6-2.4) K/uL [place] # (Auto) 0.2 (0.0-0.8) K/uL Eos # (Auto) 0.0 (0.0-0.7) K/uL Baso # (Auto) 0.0 (0.0-0.1) K/uL Nucleated RBC % 0.0 /100WBC Nucleated RBCs # 0 K/uL INR 0.98 APTT 25.2 (18.6-31.3) SEC Sodium 134 L (136-145) mmol/L Potassium 5.2 H (3.5-5.1) mmol/L Chloride 103 (98-107) mmol/L Carbon Dioxide 24.5 (21.0-32.0) mmol/L BUN 31 H (7.0-18.0) mg/dL Creatinine 1.3 H (0.6-1.0) mg/dL Est Cr Clr Drug Dosing TNP Estimated GFR (MDRD) 38.7 ml/min Glucose 180 H (74-106) mg/dL Calcium 9.2 (8.5-10.1) mg/dL Phosphorus (2.6-4.7) mg/dL Magnesium (1.8-2.4) mg/dL Total Bilirubin 0.2 (0.2-1.0) mg/dL AST 65 H (15-37) IU/L ALT 50 (14-63) IU/L Alkaline Phosphatase 159 H (46-116) U/L CK-MB (CK-2) 1.9 (0-3.6) ng/mL Troponin I < 0.050 (0.000-0.056) ng/mL Total Protein 7.3 (6.4-8.2) g/dL Albumin 3.7 (3.4-5.0) g/dL Globulin 3.6 H (2.0-3.5) g/dL Albumin/Globulin Ratio 1.0 L (1.3-2.8) Urine Color Urine Appearance Urine pH (5.0-8.0) Ur Specific [place] (1.001-1.035) Urine Protein (NEGATIVE) mg/dL Urine Glucose (UA) (NEGATIVE) mg/dL Urine Ketones (NEGATIVE) mg/dL Urine Occult Blood (NEGATIVE) Urine Nitrite (NEGATIVE) Urine Bilirubin (NEGATIVE) Urine Urobilinogen (<2.0) EU/dL Ur Leukocyte Esterase (NEGATIVE) Urine RBC (0-2/HPF) Urine WBC (0-5/HPF) Ur Epithelial Cells (NONE-FEW) Urine Bacteria (NEGATIVE) Urine Opiates Screen (NEGATIVE) Ur Oxycodone Screen (NEGATIVE) Urine Methadone Screen (NEGATIVE) Ur Barbiturates Screen (NEGATIVE) Ur Phencyclidine Scrn (NEGATIVE) Ur Amphetamine Screen (NEGATIVE) U Methamphetamines Scrn (NEGATIVE) U Benzodiazepines Scrn (NEGATIVE) U Cocaine Metab Screen (NEGATIVE) U Marijuana (THC) Screen (NEGATIVE) 02/17/18 02/17/18 02/18/18 Range/Units 19:45 19:45 06:21 WBC 4.54 (4.0-11.0) K/uL RBC 3.56 L (4.30-5.90) M/uL Hgb 10.6 L (12.0-16.0) g/dL Hct 32.9 L (36.0-46.0) % MCV 92.4 (80.0-98.0) fL MCH 29.8 (27.0-32.0) pg MCHC 32.2 (31.0-37.0) g/dL RDW Std Deviation 45.3 (28.0-62.0) fl RDW Coeff of Lisa 14 (11.0-15.0) % Plt Count 208 (150-400) K/uL MPV 9.10 (7.40-12.00) fL Neut % (Auto) 80.8 H (48.0-80.0) % Lymph % (Auto) 17.2 (16.0-40.0) % [place] % (Auto) 2.0 (0.0-15.0) % Eos % (Auto) 0.0 (0.0-7.0) % Baso % (Auto) 0.0 (0.0-1.5) % Neut # (Auto) 3.7 (1.4-5.7) K/uL Lymph # (Auto) 0.8 (0.6-2.4) K/uL [place] # (Auto) 0.1 (0.0-0.8) K/uL Eos # (Auto) 0.0 (0.0-0.7) K/uL Baso # (Auto) 0.0 (0.0-0.1) K/uL Nucleated RBC % 0.0 /100WBC Nucleated RBCs # 0 K/uL INR APTT (18.6-31.3) SEC Sodium (136-145) mmol/L Potassium (3.5-5.1) mmol/L Chloride (98-107) mmol/L Carbon Dioxide (21.0-32.0) mmol/L BUN (7.0-18.0) mg/dL Creatinine (0.6-1.0) mg/dL Est Cr Clr Drug Dosing Estimated GFR (MDRD) ml/min Glucose (74-106) mg/dL Calcium (8.5-10.1) mg/dL Phosphorus (2.6-4.7) mg/dL Magnesium (1.8-2.4) mg/dL Total Bilirubin (0.2-1.0) mg/dL AST (15-37) IU/L ALT (14-63) IU/L Alkaline Phosphatase (46-116) U/L CK-MB (CK-2) (0-3.6) ng/mL Troponin I (0.000-0.056) ng/mL Total Protein (6.4-8.2) g/dL Albumin (3.4-5.0) g/dL Globulin (2.0-3.5) g/dL Albumin/Globulin Ratio (1.3-2.8) Urine Color YELLOW Urine Appearance CLEAR Urine pH 6.0 (5.0-8.0) Ur Specific [place] 1.025 (1.001-1.035) Urine Protein NEGATIVE (NEGATIVE) mg/dL Urine Glucose (UA) NEGATIVE (NEGATIVE) mg/dL Urine Ketones NEGATIVE (NEGATIVE) mg/dL Urine Occult Blood SMALL H (NEGATIVE) Urine Nitrite NEGATIVE (NEGATIVE) Urine Bilirubin NEGATIVE (NEGATIVE) Urine Urobilinogen 0.2 (<2.0) EU/dL Ur Leukocyte Esterase NEGATIVE (NEGATIVE) Urine RBC 1-2 (0-2/HPF) Urine WBC 0-1 (0-5/HPF) Ur Epithelial Cells FEW (NONE-FEW) Urine Bacteria FEW (NEGATIVE) Urine Opiates Screen NEGATIVE (NEGATIVE) Ur Oxycodone Screen NEGATIVE (NEGATIVE) Urine Methadone Screen NEGATIVE (NEGATIVE) Ur Barbiturates Screen NEGATIVE (NEGATIVE) Ur Phencyclidine Scrn NEGATIVE (NEGATIVE) Ur Amphetamine Screen NEGATIVE (NEGATIVE) U Methamphetamines Scrn NEGATIVE (NEGATIVE) U Benzodiazepines Scrn NEGATIVE (NEGATIVE) U Cocaine Metab Screen NEGATIVE (NEGATIVE) U Marijuana (THC) Screen NEGATIVE (NEGATIVE) 02/18/18 Range/Units 06:21 WBC (4.0-11.0) K/uL RBC (4.30-5.90) M/uL Hgb (12.0-16.0) g/dL Hct (36.0-46.0) % MCV (80.0-98.0) fL MCH (27.0-32.0) pg MCHC (31.0-37.0) g/dL RDW Std Deviation (28.0-62.0) fl RDW Coeff of Lisa (11.0-15.0) % Plt Count (150-400) K/uL MPV (7.40-12.00) fL Neut % (Auto) (48.0-80.0) % Lymph % (Auto) (16.0-40.0) % [place] % (Auto) (0.0-15.0) % Eos % (Auto) (0.0-7.0) % Baso % (Auto) (0.0-1.5) % Neut # (Auto) (1.4-5.7) K/uL Lymph # (Auto) (0.6-2.4) K/uL [place] # (Auto) (0.0-0.8) K/uL Eos # (Auto) (0.0-0.7) K/uL Baso # (Auto) (0.0-0.1) K/uL Nucleated RBC % /100WBC Nucleated RBCs # K/uL INR APTT (18.6-31.3) SEC Sodium 134 L (136-145) mmol/L Potassium 5.0 (3.5-5.1) mmol/L Chloride 102 (98-107) mmol/L Carbon Dioxide 25.7 (21.0-32.0) mmol/L BUN 27 H (7.0-18.0) mg/dL Creatinine 1.0 (0.6-1.0) mg/dL Est Cr Clr Drug Dosing 32.30 Estimated GFR (MDRD) 52.3 ml/min Glucose 144 H (74-106) mg/dL Calcium 9.0 (8.5-10.1) mg/dL Phosphorus 4.6 (2.6-4.7) mg/dL Magnesium 1.8 (1.8-2.4) mg/dL Total Bilirubin 0.4 (0.2-1.0) mg/dL AST 45 H (15-37) IU/L ALT 44 (14-63) IU/L Alkaline Phosphatase 148 H (46-116) U/L CK-MB (CK-2) (0-3.6) ng/mL Troponin I (0.000-0.056) ng/mL Total Protein 7.0 (6.4-8.2) g/dL Albumin 3.4 (3.4-5.0) g/dL Globulin 3.6 H (2.0-3.5) g/dL Albumin/Globulin Ratio 0.9 L (1.3-2.8) Urine Color Urine Appearance Urine pH (5.0-8.0) Ur Specific [place] (1.001-1.035) Urine Protein (NEGATIVE) mg/dL Urine Glucose (UA) (NEGATIVE) mg/dL Urine Ketones (NEGATIVE) mg/dL Urine Occult Blood (NEGATIVE) Urine Nitrite (NEGATIVE) Urine Bilirubin (NEGATIVE) Urine Urobilinogen (<2.0) EU/dL Ur Leukocyte Esterase (NEGATIVE) Urine RBC (0-2/HPF) Urine WBC (0-5/HPF) Ur Epithelial Cells (NONE-FEW) Urine Bacteria (NEGATIVE) Urine Opiates Screen (NEGATIVE) Ur Oxycodone Screen (NEGATIVE) Urine Methadone Screen (NEGATIVE) Ur Barbiturates Screen (NEGATIVE) Ur Phencyclidine Scrn (NEGATIVE) Ur Amphetamine Screen (NEGATIVE) U Methamphetamines Scrn (NEGATIVE) U Benzodiazepines Scrn (NEGATIVE) U Cocaine Metab Screen (NEGATIVE) U Marijuana (THC) Screen (NEGATIVE) Result Diagrams: 02/18/18 06:21 02/18/18 06:21 Orders Last 24hrs: Active Orders 24 hr Category Date Time Status Patient Status [ADT] Stat ADT 02/17/18 19:56 Active EKG 12 Lead [EKG Documentation Completion] [RC] STAT Care 02/17/18 18:25 Active Oxygen Therapy [RC] PRN Care 02/17/18 22:44 Active Pulse Oximetry [RC] PRN Care 02/17/18 22:45 Active Telemetry Monitoring [Cardiac Monitoring] [RC] Q8H Care 02/17/18 21:15 Active Up ad Heidi [RC] ASDIRECTED Care 02/17/18 22:44 Active VTE/DVT Education [RC] PER UNIT ROUTINE Care 02/17/18 22:44 Active Vital Signs [RC] Q4H Care 02/17/18 22:44 Active Brain wo Cont [MR] Stat Exams 02/18/18 13:34 Taken CBC WITH AUTO DIFF [HEME] AM Lab 02/19/18 05:11 Ordered CBC WITH AUTO DIFF [HEME] AM Lab 02/20/18 05:11 Ordered CBC WITH AUTO DIFF [HEME] AM Lab 02/21/18 05:11 Ordered COMPREHENSIVE METABOLIC PN,CMP [CHEM] AM Lab 02/19/18 05:11 Ordered COMPREHENSIVE METABOLIC PN,CMP [CHEM] AM Lab 02/20/18 05:11 Ordered COMPREHENSIVE METABOLIC PN,CMP [CHEM] AM Lab 02/21/18 05:11 Ordered COMPREHENSIVE METABOLIC PN,CMP [CHEM] AM Lab 02/22/18 05:11 Ordered CULTURE BLOOD [BC] Stat Lab 02/17/18 19:26 Received CULTURE BLOOD [BC] Stat Lab 02/17/18 19:39 Received CULTURE URINE [RM] Stat Lab 02/17/18 19:45 Ordered DRUG SCREEN, URINE [URCHEM] Stat Lab 02/17/18 19:45 Ordered MAGNESIUM [CHEM] AM Lab 02/19/18 05:11 Ordered MAGNESIUM [CHEM] AM Lab 02/20/18 05:11 Ordered PHOSPHORUS [CHEM] AM Lab 02/19/18 05:11 Ordered PHOSPHORUS [CHEM] AM Lab 02/20/18 05:11 Ordered PHOSPHORUS [CHEM] AM Lab 02/21/18 05:11 Ordered UA W/MICROSCOPIC [URIN] Stat Lab 02/17/18 19:45 Ordered Acetaminophen [Tylenol] Med 02/17/18 22:44 Active 650 mg PO Q4H PRN Acetaminophen/HYDROcodone [[place] 325-5 MG] Med 02/17/18 22:51 Active 1 tab PO Q4H PRN Dexamethasone Med 02/18/18 13:45 Active 4 mg PO Q6H Morphine Med 02/17/18 22:44 Active 2 mg IVPUSH Q2H PRN Sodium Chloride 0.9% [Saline Flush] Med 02/17/18 22:44 Active 10 ml FLUSH ASDIRECTED PRN Sodium Chloride 0.9% [Saline Flush] Med 02/17/18 22:44 Active 2.5 ml FLUSH ASDIRECTED PRN levETIRAcetam [Keppra] Med 02/18/18 09:00 Active 500 mg PO BID levoFLOXacin [Levaquin] Med 02/18/18 21:00 Active 500 mg PO Q24H Blood Culture x2 Reflex Set [OM.PC] Stat Oth 02/17/18 18:26 Ordered Peripheral IV Insertion Adult [OM.PC] Routine Oth 02/17/18 22:44 Ordered Saline Lock Insert [OM.PC] Routine Oth 02/17/18 22:44 Ordered Sequential Compression Device [OM.PC] Per Unit Routine Oth 02/17/18 22:45 Ordered Resuscitation Status Routine Resus Stat 02/17/18 22:44 Ordered Medication Orders Acetaminophen (Tylenol) 650 mg PO Q4H PRN PRN Reason: Pain (Mild 1-3)/fever Hydrocodone Bitart/Acetaminophen ([place] 325-5 Mg) 1 tab PO Q4H PRN PRN Reason: Pain Dexamethasone (Dexamethasone) 4 mg PO Q6H [facility] Last Admin: 02/18/18 15:05 Dose: 4 mg Levetiracetam (Keppra) 500 mg PO BID [facility] Last Admin: 02/18/18 09:29 Dose: 500 mg Levofloxacin (Levaquin) 500 mg PO Q24H [facility] Morphine Sulfate (Morphine) 2 mg IVPUSH Q2H PRN PRN Reason: Pain (severe 7-10) Stop: 02/18/18 22:46 Sodium Chloride (Saline Flush) 10 ml FLUSH ASDIRECTED PRN PRN Reason: Keep Vein Open Sodium Chloride (Saline Flush) 2.5 ml FLUSH ASDIRECTED PRN PRN Reason: Keep Vein Open
--- NOTE | 2018-02-18 18:16 | MR ---
EXAM DATE: 02/17/18 PATIENT'S AGE: 88 Patient: RUFINO MUKHERJEE Facility: [place], [place] Site . Site : 1930 Study: MRI Head [id number] 2:51:45 PM Ordering Physician: Merced Clarke Final Report: INDICATION: 88-year-old female. History of unresponsiveness. Posterior right temporal lobe mass with perilesional edema on noncontrast CT. Further evaluation. TECHNIQUE: Volumetric 3 plane T1 weighted, FLAIR axial, T2 axial, susceptibility weighted axial, diffusion axial and ADC map axial images acquired. No contrast images acquired. COMPARISON: Noncontrast CT October 18, 2017. FINDINGS: There is no pathologic intracranial susceptibility. 10 x 11 millimeter lesion in the cortex/ subcortical white matter of the posterior right temporal convexity is unchanged given technical differences. The lesion is hypointense on FLAIR/T2 axial acquisitions without convincing T1 hyperintensity on the volumetric study. There is moderate perilesional edema. There is no midline shift or effacement of the right lateral ventricle. Ventricles and cortical sulci are mildly prominent. Scattered white matter foci of T2 prolongation are present in cerebral hemispheres. A small focus of T2 prolongation is present left jos polina. Cerebellar tonsils are normally situated. Optic chiasm and pituitary are unremarkable. Paranasal mastoid air cells are clear. Usual flow voids in the [place]. Comparison CT better demonstrates a dense calcification in the high right frontal parafalcine region without cavernous sinus invasion. IMPRESSION: 1. No change given technical differences. 2. Right temporal lobe lesion with moderate perilesional edema is unchanged. The lesion is hypointense on FLAIR/T2 axial acquisitions without convincing bright T1 signal. Findings favor metastatic deposits. T2 shortening may be seen in association with metastatic adenocarcinoma. Clinical correlation suggested. Contrast-enhanced MRI, if available, would be helpful further characterization. 3. Benign or low-grade appearing dense calcification in the high right parafalcine region is unchanged but better demonstrated on the CT. The bulky nature of this calcification is suspect for meningioma. There is no associated mass effect or evidence for cavernous sinus invasion. 4. Age-related findings including atrophy and microvascular ischemic disease. 5. No pathologic intracranial susceptibility and no restricted diffusion to suggest recent ischemia or infarction. Dictated by Benjamin Martinez MD @ Feb 18 2018 3:04PM (Electronic Signature) Report Signed by Proxy. MTDD
[2018-02-18] MEDS ORDERED: Levofloxacin 500 MG Tab PO SCH (21:00)
[2018-02-18] MEDS ORDERED: LORazepam 2 MG/ML SDV IVPUSH PRN (21:55)
--- NOTE | 2018-02-18 21:55 | PCM.SN ---
- Free Text/Narrative Note: [id number] a/p mets to brain , seizure d/o keppra 500 mg po BID , seizure precaution MRI brain , f/up radiation oncology dexametasone 4 mg po Q6 h to decrease brain edema Gi prof_ protonix po
--- NOTE | 2018-02-18 22:33 | HP ---
DATE OF : 1930 PRIMARY CARE PHYSICIAN: None PCP HISTORY OF PRESENT ILLNESS: The patient is an 88-year-old female, who presented to the emergency room after she was found late in the evening that she was unresponsive at home. Family called EMS and she was brought to the emergency room where she came back to her senses. The patient was found moving her jaw in the bed and was unresponsive and had blood coming out of her mouth No generalized moving of the body. Eight years ago, she was diagnosed with right breast cancer and in 2013, she was diagnosed with colon cancer and she underwent 2 years of chemotherapy. After that, she was placed in hospice when she had metastasis to her liver, and she came out of hospice after a year and a half. 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 PAST MEDICAL HISTORY: 1. She has a history of breast cancer. 2. Metastatic colon cancer. 3. Hypertension. 4. Sinus infection. 5. Hyperlipidemia. ALLERGIES: No known drug allergies. PAST SURGICAL HISTORY: 1. She is status post mastectomy. 2. She had a colon surgery. SOCIAL HISTORY: Smoking history, she is a former smoker. Alcohol use in the past, occasionally very little and no drug use. FAMILY HISTORY: Reviewed and noncontributory. REVIEW OF SYSTEMS: A 12-point review of systems is negative except as in history of present illness. LABORATORY DATA: At admission; her WBC is 8.87, hemoglobin 10.5, hematocrit 32.9, and platelet count is 217. INR 0.98. Sodium 134, potassium 5.2, chloride 103, BUN 31, creatinine 1.3, glucose 180, calcium 9.2, AST 65, ALT 50, alkaline phosphatase 159. CK-MB 1.9, troponin less than 0.050. Total protein 7.3, albumin 3.7, globulin 3.6. IMAGING: CT of the head showed a tumor 1.3 x 1 cm localized in the right posterior temporal lobe with surrounding edema. PHYSICAL EXAMINATION: HEENT: Head is atraumatic, normocephalic. Pupils are equally reactive to light. NECK: Supple. No thyromegaly. No lymphadenopathy. LUNGS: Clear to auscultation bilaterally. HEART: S1 and S2. Regular rhythm and rate. No murmur. ABDOMEN: Soft, nontender. Positive bowel sounds. EXTREMITIES: No edema. NEUROLOGIC: The patient is alert and oriented x3. There are no gross focal neurologic deficits. Cranial nerves II through XII are grossly intact. In the emergency room, the patient was loaded with 1 g of phenytoin and she was started on the floor on Keppra 500 mg p.o. b.i.d. 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 We will admit the patient to medical telemetry and we will order MRI of the brain and oncologist, Dr. Guerra was called in [place], and he recommended the patient to have further evaluation with MRI of the brain, and she will need to follow up with radiation oncologist or Neurosurgery, and to continue the patient with dexamethasone 4 mg q.6 hours p.o. and seizure medication. Also, we will order PT/OT for the patient, seizure precautions, and we will follow up results of the MRI. As per my discussion with Oncology, Dr. Guerra, the patient is at risk of bleeding in the brain due to metastasis, so we will not give the patient heparin for dvt prof Wolf HARDY. CASEY / LILY /[id number] MTDAlberto
[2018-02-19] MEDS: Dexamethasone 4 MG Tab PO SCH ×3 (02:07→13:43)
[2018-02-19] MEDS ORDERED: Pantoprazole 40 MG Tab.CR PO SCH (07:30)
[2018-02-19] MEDS: levETIRAcetam 500 MG Tab PO SCH (08:30)
[2018-02-19 12:56] VITALS: BP 122/56
--- NOTE | 2018-02-19 20:05 | PCM.DCSUM1 ---
Discharge Summary - Hospital Course Diagnosis: Stroke: No - Discharge Data Discharge Disposition: Home, Self-Care 01 Condition: Stable - Discharge Diagnosis/Problem(s) (1) Seizure cerebral SNOMED Code(s): 754291075 ICD Code: I67.89 - OTHER CEREBROVASCULAR DISEASE Status: Acute (2) Brain metastasis Status: Acute (3) Colon cancer metastasized to liver SNOMED Code(s): 215259790, 972953461 ICD Code: C18.9 - MALIGNANT NEOPLASM OF COLON, UNSPECIFIED; C78.7 - SECONDARY MALIG NEOPLASM OF LIVER AND INTRAHEPATIC BILE DUCT Status: Acute (4) Hypertension SNOMED Code(s): 70366976 ICD Code: I10 - ESSENTIAL (PRIMARY) HYPERTENSION Status: Acute (5) Hx of breast cancer SNOMED Code(s): 405118516 ICD Code: Z85.3 - PERSONAL HISTORY OF MALIGNANT NEOPLASM OF BREAST Status: Acute (6) Meningioma SNOMED Code(s): 895415934 ICD Code: D32.9 - BENIGN NEOPLASM OF MENINGES, UNSPECIFIED Status: Acute - Patient Instructions Diet: Usual Diet as Tolerated Activity: As Tolerated Driving: May Drive Today Showering/Bathing: May Shower - Discharge Plan *PRESCRIPTION DRUG MONITORING PROGRAM REVIEWED*: Not Applicable *COPY OF PRESCRIPTION DRUG MONITORING REPORT IN PATIENT LATOSHA: Not Applicable Prescriptions/Med Rec: Calcium Carbonate/Vitamin D3 [Calcium 500 + Vit D 400] 1 each PO DAILY #90 tablet Dexamethasone 4 mg PO Q6H #60 tablet levETIRAcetam [Keppra] 1,000 mg PO BID 30 Days #60 tablet levETIRAcetam [Keppra] 750 mg PO BID 14 Days #42 tablet Pantoprazole Sodium [Protonix] 40 mg PO DAILY #30 tablet. Home Medications: Home Meds Cetirizine [ZyrTEC] 5 mg PO DAILY PRN 03/05/14 [History] Ramipril [Altace] 5 mg PO DAILY 03/05/14 [History] hydroCHLOROthiazide [Hydrochlorothiazide] 25 mg PO DAILY 03/05/14 [History] Aspirin 81 mg PO DAILY 06/27/16 [History] Potassium Chloride [Klor-Con M10] 40 meq PO BID 10/31/16 [History] Calcium Carbonate/Vitamin D3 [Calcium 500 + Vit D 400] 1 each PO DAILY #90 tablet 02/19/18 [Rx] Dexamethasone 4 mg PO Q6H #60 tablet 02/19/18 [Rx] Pantoprazole Sodium [Protonix] 40 mg PO DAILY #30 tablet. 02/19/18 [Rx] levETIRAcetam [Keppra] 1,000 mg PO BID 30 Days #60 tablet 02/19/18 [Rx] levETIRAcetam [Keppra] 750 mg PO BID 14 Days #42 tablet 02/19/18 [Rx] Patient Handouts: Calcium; Vitamin D oral tablets, Levetiracetam tablets, Pantoprazole tablets, Dexamethasone tablets, Seizure, Adult, [id number] Referrals: Suleiman Ball MD [Physician] - Braxton Amos MD [Physician] - 03/05/18 9:00 am - Patient Data Vitals - Most Recent: Last Vital Signs Temp 98.2 F 02/19/18 12:00 Pulse 70 02/19/18 12:00 Resp 16 02/19/18 12:00 BP 122/56 L 02/19/18 12:00 Pulse Ox 93 L 02/19/18 12:00 Weight - Most Recent: 116 lb I&O - Last 24 hours: Intake & Output 02/19/18 02/19/18 02/19/18 06:59 14:59 22:59 Intake Total 360 Output Total 1000 Balance -640 Lab Results - Last 24 hrs: Laboratory Results - last 24 hr 02/19/18 02/19/18 Range/Units 05:35 05:35 WBC 5.97 (4.0-11.0) K/uL RBC 3.52 L (4.30-5.90) M/uL Hgb 10.5 L (12.0-16.0) g/dL Hct 32.0 L (36.0-46.0) % MCV 90.9 (80.0-98.0) fL MCH 29.8 (27.0-32.0) pg MCHC 32.8 (31.0-37.0) g/dL RDW Std Deviation 44.9 (28.0-62.0) fl RDW Coeff of Lisa 14 (11.0-15.0) % Plt Count 191 (150-400) K/uL MPV 8.80 (7.40-12.00) fL Neut % (Auto) 85.5 H (48.0-80.0) % Lymph % (Auto) 9.5 L (16.0-40.0) % [place] % (Auto) 5.0 (0.0-15.0) % Eos % (Auto) 0.0 (0.0-7.0) % Baso % (Auto) 0.0 (0.0-1.5) % Neut # (Auto) 5.1 (1.4-5.7) K/uL Lymph # (Auto) 0.6 (0.6-2.4) K/uL [place] # (Auto) 0.3 (0.0-0.8) K/uL Eos # (Auto) 0.0 (0.0-0.7) K/uL Baso # (Auto) 0.0 (0.0-0.1) K/uL Nucleated RBC % 0.0 /100WBC Nucleated RBCs # 0 K/uL Sodium 137 (136-145) mmol/L Potassium 4.0 (3.5-5.1) mmol/L Chloride 103 (98-107) mmol/L Carbon Dioxide 26.0 (21.0-32.0) mmol/L BUN 30 H (7.0-18.0) mg/dL Creatinine 1.2 H (0.6-1.0) mg/dL Est Cr Clr Drug Dosing 26.92 mL/min Estimated GFR (MDRD) 42.4 ml/min Glucose 141 H (74-106) mg/dL Calcium 9.3 (8.5-10.1) mg/dL Phosphorus 3.5 (2.6-4.7) mg/dL Magnesium 2.0 (1.8-2.4) mg/dL Total Bilirubin 0.3 (0.2-1.0) mg/dL AST 37 (15-37) IU/L ALT 38 (14-63) IU/L Alkaline Phosphatase 131 H (46-116) U/L Total Protein 6.8 (6.4-8.2) g/dL Albumin 3.4 (3.4-5.0) g/dL Globulin 3.4 (2.0-3.5) g/dL Albumin/Globulin Ratio 1.0 L (1.3-2.8) HEMALATHA Results - Last 24 hrs: Microbiology 02/17/18 19:39 Aerobic Blood Culture - Preliminary Blood - Venous - Lab Draw NO GROWTH AFTER 2 DAYS Anaerobic Blood Culture - Preliminary NO GROWTH AFTER 2 DAYS 02/17/18 19:26 Aerobic Blood Culture - Preliminary Blood - Venous NO GROWTH AFTER 2 DAYS Anaerobic Blood Culture - Preliminary NO GROWTH AFTER 2 DAYS 02/17/18 19:45 Urine Culture - Final Urine, Catheterized No Growth Med Orders - Current: Current Medications Discontinued Medications Acetaminophen (Tylenol) 650 mg PO Q4H PRN PRN Reason: Pain (Mild 1-3)/fever Hydrocodone Bitart/Acetaminophen ([place] 325-5 Mg) 1 tab PO Q4H PRN PRN Reason: Pain Dexamethasone (Dexamethasone) 10 mg IVPUSH ONETIME ONE Stop: 02/17/18 19:54 Last Admin: 02/17/18 20:09 Dose: 10 mg Dexamethasone (Dexamethasone) 4 mg PO Q6H [facility] Last Admin: 02/19/18 13:43 Dose: 4 mg Heparin Sodium (Porcine) (Heparin Lock Flush 100 Units/Ml) 500 units FLUSH ASDIRECTED PRN PRN Reason: PORTACATH FLUSH Phenytoin Sodium 1,000 mg/ (Sodium Chloride) 270 mls @ 250 mls/hr IV ONETIME ONE Stop: 02/17/18 20:41 Last Admin: 02/17/18 20:20 Dose: 250 mls/hr Levetiracetam (Keppra) 500 mg PO BID [facility] Last Admin: 02/17/18 23:41 Dose: 500 mg Levetiracetam (Keppra) 500 mg PO BID [facility] Last Admin: 02/19/18 08:30 Dose: 500 mg Levofloxacin (Levaquin) 500 mg PO Q24H [facility] Last Admin: 02/18/18 22:26 Dose: 500 mg Levofloxacin (Levaquin) 500 mg PO ONETIME ONE Stop: 02/17/18 23:01 Last Admin: 02/17/18 23:41 Dose: 500 mg Lorazepam (Ativan) 2 mg IVPUSH Q1H PRN PRN Reason: Seizures Morphine Sulfate (Morphine) 2 mg IVPUSH ONETIME ONE Stop: 02/17/18 20:26 Last Admin: 02/17/18 20:31 Dose: 2 mg Morphine Sulfate (Morphine) 2 mg IVPUSH Q2H PRN PRN Reason: Pain (severe 7-10) Stop: 02/18/18 22:46 Pantoprazole Sodium (Protonix) 40 mg PO ACBREAKFAST ARMANDO Last Admin: 02/19/18 08:30 Dose: 40 mg Sodium Chloride (Saline Flush) 10 ml FLUSH ASDIRECTED PRN PRN Reason: Keep Vein Open Sodium Chloride (Saline Flush) 2.5 ml FLUSH ASDIRECTED PRN PRN Reason: Keep Vein Open
== END 2018-02-19 14:45 | disposition home or self-care (01) ==
LOC: MW.ED 18:21 → MW.MS 19:56
PROVIDERS: ADMIT Internal Medicine; ATTEND Internal Medicine
DX: G40.89 Other seizures (principal); C79.31 Secondary malignant neoplasm of brain; I67.89 Other cerebrovascular disease; C18.9 Malignant neoplasm of colon, unspecified; C78.7 Secondary malignant neoplasm of liver and intrahepatic bile duct; I10 Essential (primary) hypertension; Z85.3 Personal history of malignant neoplasm of breast; D32.9 Benign neoplasm of meninges, unspecified; Z79.899 Other long term (current) drug therapy; E78.5 Hyperlipidemia, unspecified; Z87.891 Personal history of nicotine dependence
CPT/HCPCS: 36415; 70450; 70551; 80053; 80305; 81001; 82553; 83735; 84100; 84484; 85025; 85610; 85730; 87040; 87086; 93005; 96365; 96375; 99285; A9270; G0378; J1100; J1165; J2270; J7050; J8540